=== PATIENT | male | born 1990 | race Caucasian/White ===

== ENCOUNTER 2017-09-07 00:35 | Emergency (ER) | payer OTHER ==
[~2017-09-07] VITALS: Ht 180.3 cm; Wt 88.5 kg
[2017-09-07 00:37] VITALS: BP 138/66; PULSE 112; RESP 16; TEMP 98.6; O2SAT 98
[2017-09-07 01:29] VITALS: RESP 22; O2SAT 98
--- NOTE | 2017-09-07 01:29 | PD ---
HPI Chief Complaint: Cold / Flu Symptoms Time Seen by Provider: 01:18 Travel History International Travel<30 days: No Contact w/Intl Traveler<30days: No Traveled to known affect area: No History of Present Illness HPI This is a 27 year male with history of tobaccoism, presents today with spacer cough and shortness of breath. Patient states he's been coughing for several days now. He reports subjective fevers, no chills.. He states he has tightness in his chest when he coughs. He denies chest tightness without coughing. Reports coughing up gonzales phlegm. He denies any drugs of abuse. He also reports sore throat. PFSH Past Medical History Asthma: Yes (CHILDHOOD) Diminished Hearing: No Social History Alcohol Use: Yes (OCC) Tobacco Use: Yes (1PPD) Substance Use: Yes (WEED) Allergies-Medications (Allergen,Severity, Reaction): Coded Allergies: tramadol (Verified Allergy, Mild, Hives, 09/07/17) Reported Meds & Prescriptions Reported Meds & Active Scripts Active Tessalon Perles (Benzonatate) 100 Mg Cap 200 Mg PO TID PRN 5 Days Doxycycline Hyclate 100 Mg Cap 100 Mg PO BID Review of Systems Except as stated in HPI: all other systems reviewed are Neg General / Constitutional: Positive: Fever (subjective), No: Chills HENT: Positive: Sore Throat, No: Headaches, Vertigo, Lightheadedness Cardiovascular: Positive: Chest Pain or Discomfort (pleuritic with coughing), No: Palpitations Respiratory: Positive: Cough (productive gonzales phlegm), Shortness of Breath, Wheezing Gastrointestinal: No: Nausea, Vomiting, Abdominal Pain Musculoskeletal: No: Myalgias, Weakness, Pain Neurologic: No: Weakness, Dizziness, Headache Physical Exam Narrative GENERAL: Well-nourished, well-developed patient, who is actively coughing when I entered the room.. SKIN: Focused skin assessment warm/dry. HEAD: Normocephalic/atraumatic. EYES: No scleral icterus. No injection or drainage. NECK: Supple, trachea midline. CARDIOVASCULAR: Regular rate and rhythm without murmurs, gallops, or rubs. RESPIRATORY: Breath sounds equal bilaterally. Expiratory wheezes in the upper and lower lung potter bilaterally. No Rales appreciated. GASTROINTESTINAL: Abdomen soft, non-tender, nondistended. MUSCULOSKELETAL: No cyanosis, or edema. NEUROLOGICAL: Awake and alert. Cranial nerves II through XII intact. Motor grossly within normal limits. Five out of 5 muscle strength in all muscle groups. Normal speech. Data Data Last Documented VS Vital Signs Date Time Temp Pulse Resp B/P (MAP) Pulse Ox O2 Delivery O2 Flow Rate FiO2 09/07/17 01:49 98 21 09/07/17 01:29 Nasal Cannula 2.00 09/07/17 01:29 22 09/07/17 00:37 98.6 112 Orders Orders Basic Metabolic Panel (Bmp) (09/07/17:18) Complete Blood Count With Diff (09/07/17:18) Chest, Single Ap (09/07/17:18) Ecg Monitoring (09/07/17:18) Iv Access Insert/Monitor (09/07/17:18) Oximetry (09/07/17:18) Oxygen Administration (09/07/17:18) Methylprednisolone So Succ Inj (Solumedr (09/07/17 01:30) Albuterol Neb (Albuterol Neb) (09/07/17 01:30) Albuterol-Ipratropium Neb (Duoneb Neb) (09/07/17 01:30) Sodium Chloride 0.9% Flush (Ns Flush) (09/07/17 01:30) Influenzae A/B Antigen (09/07/17 01:18) Group A Rapid Strep Screen (09/07/17:18) Strep Culture (Group A) (09/07/17 01:25) Labs Laboratory Tests Test 09/07/17 01:15 White Blood Count 15.7 TH/MM3 Red Blood Count 4.85 MIL/MM3 Hemoglobin 16.3 GM/DL Hematocrit 46.4 % Mean Corpuscular Volume 95.5 FL Mean Corpuscular Hemoglobin 33.7 PG Mean Corpuscular Hemoglobin Concent 35.2 % Red Cell Distribution Width 12.6 % Platelet Count 144 TH/MM3 Mean Platelet Volume 10.9 FL Neutrophils (%) (Auto) 71.2 % Lymphocytes (%) (Auto) 15.8 % Monocytes (%) (Auto) 11.1 % Eosinophils (%) (Auto) 1.7 % Basophils (%) (Auto) 0.2 % Neutrophils # (Auto) 11.2 TH/MM3 Lymphocytes # (Auto) 2.5 TH/MM3 Monocytes # (Auto) 1.7 TH/MM3 Eosinophils # (Auto) 0.3 TH/MM3 Basophils # (Auto) 0.0 TH/MM3 CBC Comment DIFF FINAL Differential Comment Blood Urea Nitrogen 11 MG/DL Creatinine 1.01 MG/DL Random Glucose 87 MG/DL Calcium Level 9.2 MG/DL Sodium Level 137 MEQ/L Potassium Level 3.7 MEQ/L Chloride Level 104 MEQ/L Carbon Dioxide Level 26.2 MEQ/L Anion Gap 7 MEQ/L Estimat Glomerular Filtration Rate 87 ML/MIN MDM Medical Decision Making Medical Screen Exam Complete: Yes Emergency Medical Condition: Yes Differential Diagnosis Bronchitis versus pneumonia versus influenza versus strep throat Narrative Course 27-year-old male presents with cough with pleuritic discomfort. The patient has a hacking cough with reported gonzales phlegm. Chest x-ray shows no evidence of acute infiltrate. The patient's white blood cell count was elevated at 14, 000. Given this, he'll be treated with doxycycline 100 mg by mouth twice a day. Also be given a prescription for Tessalon Perles. He is instructed to stop smoking cigarettes. He is instructed return of he starts feeling worse. Diagnosis Primary Impression: Bronchitis Additional Impression: Tobacco use Additional Instructions: Return if feeling worse. Stop smoking cigarettes. Scripts Benzonatate (Tessalon Perles) 100 Mg Cap 200 MG PO TID Y for COUGH for 5 Days, CAP 0 Refills Prov: Ralph Lopes MD 09/07/17 Doxycycline Hyclate (Doxycycline Hyclate) 100 Mg Cap 100 MG PO BID for Infection, #20 CAP 0 Refills Prov: Ralph Lopes MD 09/07/17 Disposition: 01 DISCHARGE HOME Condition: Stable Ralph oLpes MD Sep 07, 2017 01:29
[2017-09-07] MEDS ORDERED: methylPREDNISolone SOD SUCC 125 MG/2 ML VIAL IV PUSH ONE (01:30)
[2017-09-07] MEDS ORDERED: RESP: ALBUTEROL 2.5 MG/IPRATROPIUM 0.5 MG NEB (SCH) INH ONE (01:30)
[2017-09-07] MEDS ORDERED: SODIUM CHLORIDE 0.9% FLUSH 10 ML FLUSH IVF PRN (01:30)
[2017-09-07] MEDS: RESP: ALBUTEROL 2.5 MG/3 ML NEB (SCH) INH (01:45)
[2017-09-07 01:49] VITALS: O2SAT 98
[2017-09-07 01:49] LABS: AUTOMATED NEUTROPHIL # 11.2 TH/MM3 (1.8-7.7); BASOPHIL % 0.2 % (0.0-2.0); EOSINOPHIL # 0.3 TH/MM3 (0-0.4); EOSINOPHIL % 1.7 % (0.0-4.0); HEMATOCRIT 46.4 % (39.0-51.0); HEMO FLAGS DIFF FINAL; LYMPH % 15.8 % (9.0-44.0); LYMPHOCYTE # 2.5 TH/MM3 (1.0-4.8); MEAN CELL VOLUME 95.5 FL (80.0-100.0); MEAN CORPUSCULAR HEMOGLOBIN 33.7 PG (27.0-34.0); MEAN CORPUSCULAR HGB CONC 35.2 % (32.0-36.0); MONO % 11.1 % (0.0-8.0); NEUT % 71.2 % (16.0-70.0); PLATELET COUNT 144 TH/MM3 (150-450); RED BLOOD COUNT 4.85 MIL/MM3 (4.50-5.90); RED CELL DISTRIBUTION WIDTH 12.6 % (11.6-17.2); WHITE BLOOD COUNT 15.7 TH/MM3 (4.0-11.0)
[2017-09-07 02:11] LABS: BICARBONATE 26.2 MEQ/L (21.0-32.0); POTASSIUM 3.7 MEQ/L (3.5-5.1)
--- NOTE | 2017-09-07 02:27 | RADRPT ---
EXAM DATE/TIME: 09/07/2017 01:28 [facility] COMPARISON: No previous studies available for comparison. INDICATIONS : Cough, wheezing for 2 weeks MEDICAL HISTORY : None. SURGICAL HISTORY : None. ENCOUNTER: Initial ACUITY: 2 weeks PAIN SCORE: 0/10 LOCATION: Bilateral chest FINDINGS: A single view of the chest demonstrates the lungs to be symmetrically aerated without evidence of mas s, infiltrate or effusion. The cardiomediastinal contours are unremarkable. Osseous structures are intact. CONCLUSION: 1. No acute cardiopulmonary disease. Makr Castano MD on September 07, 2017 at 2:26 Board Certified Radiologist. This report was verified electronically.
[2017-09-07 03:00] VITALS: BP 128/78; PULSE 95; RESP 16; O2SAT 100
[2017-09-07] MEDS ORDERED: DOXY100C PO (03:03)
[2017-09-07] MEDS ORDERED: BENZ100 PO (03:03)
[2017-09-07] MEDS ORDERED: KETOROLAC TROMETHAMINE 60 MG/2 ML (IM) VIAL IM ONE (03:30)
--- NOTE | 2017-09-07 21:39 | EKG ---
Date Performed: 09/07/2017 Time Performed: 01:12:35 PTAGE: 27 years EKG: Sinus rhythm POSSIBLE LEFT ATRIAL ENLARGEMENT INCOMPLETE RIGHT BUNDLE BRANCH BLOCK BORDERLINE ECG NO PREVIOUS TRACING DOCTOR: Esa Johnson Interpretating Date/Time 09/07/2017 21:37:23
== END 2017-09-07 03:35 | disposition home or self-care (01) ==
LOC: NEPE 00:35
DX: J40 Bronchitis, not specified as acute or chronic (principal); F17.210 Nicotine dependence, cigarettes, uncomplicated
CPT/HCPCS: 71010; 80048; 85025; 87081; 87804; 87880; 93005; 94640; 94664; 96372; 96374; 99284; J1885; J2930; J7613

== ENCOUNTER 2017-09-10 22:11 | Inpatient (IN) | payer SELFPAY ==
[~2017-09-10] VITALS: Ht 180.3 cm; Wt 83.6 kg
[2017-09-10 22:11] VITALS: BP 139/80; PULSE 118; RESP 18; TEMP 100.3; O2SAT 96
[~2017-09-10 22:11] MED LIST: BENZ100 PO; DOXY100C PO
[2017-09-10] MEDS ORDERED: methylPREDNISolone SOD SUCC 125 MG/2 ML VIAL IV PUSH ONE (23:00)
[2017-09-10] MEDS ORDERED: SODIUM CHLOR 0.9% 1000 ML INJ 1,000 ML IV ONE (23:00)
[2017-09-10] MEDS ORDERED: KETOROLAC TROMETHAMINE 30 MG/ML (IVP) VIAL IV PUSH ONE (23:00)
[2017-09-10] MEDS ORDERED: SODIUM CHLORIDE 0.9% FLUSH 10 ML FLUSH IVF PRN (23:00)
--- NOTE | 2017-09-10 23:10 | PD ---
HPI Chief Complaint: ENT Complaint Time Seen by Provider: 22:43 Travel History International Travel<30 days: No Contact w/Intl Traveler<30days: No Traveled to known affect area: No History of Present Illness HPI Patient is a 27-year-old male presenting to the emergency department for evaluation of sore throat, sinus congestion, cough. Patient states he was seen here 3 days ago but was unable to fill his prescription because it was too expensive. Since that time his symptoms have worsened. He took 1 200 mg ibuprofen tablet earlier today. He states his nose is clogged and he needs us to drain it. Patient states pain in his throat is a 10 out of 10 and he states he cannot swallow. He denies any drooling or dysphagia. PFSH Past Medical History Asthma: Yes (CHILDHOOD) Diminished Hearing: No Social History Alcohol Use: Yes (OCC) Tobacco Use: Yes (1PPD) Substance Use: Yes (WEED) Allergies-Medications (Allergen,Severity, Reaction): Coded Allergies: tramadol (Verified Allergy, Mild, Hives, 09/10/17) Reported Meds & Prescriptions Reported Meds & Active Scripts Active Tessalon Perles (Benzonatate) 100 Mg Cap 200 Mg PO TID PRN 5 Days Doxycycline Hyclate 100 Mg Cap 100 Mg PO BID Review of Systems Except as stated in HPI: all other systems reviewed are Neg General / Constitutional: Positive: Fever HENT: Positive: Sore Throat, Congestion Respiratory: Positive: Cough Gastrointestinal: No: Nausea, Abdominal Pain Physical Exam Narrative GENERAL: Well-developed, well-nourished, acutely ill-appearing male. SKIN: Warm and dry. HEAD: Atraumatic. Normocephalic. EYES: Pupils equal and round. No scleral icterus. No injection or drainage. ENT: No nasal bleeding or discharge. Mucous membranes pink and moist. 2+ tonsillar hypertrophy on the left with exudate noted. NECK: Trachea midline. No JVD. No cervical lymphadenopathy noted. CARDIOVASCULAR: Regular rate and rhythm. RESPIRATORY: No accessory muscle use. Clear to auscultation. Coarse breath sounds in bases. GASTROINTESTINAL: Abdomen soft, non-tender, nondistended. Hepatic and splenic margins not palpable. MUSCULOSKELETAL: Extremities without clubbing, cyanosis, or edema. No obvious deformities. NEUROLOGICAL: Awake and alert. No obvious cranial nerve deficits. Motor grossly within normal limits. Five out of 5 muscle strength in the arms and legs. Normal speech. PSYCHIATRIC: Appropriate mood and affect; insight and judgment normal. Data Data Last Documented VS Vital Signs Date Time Temp Pulse Resp B/P (MAP) Pulse Ox O2 Delivery O2 Flow Rate FiO2 09/11/17 00:35 94 16 130/71 (90) 96 Room Air 09/10/17 22:11 100.3 Orders Orders Complete Blood Count With Diff (09/10/17 22:50) Comprehensive Metabolic Panel (09/10/17 22:50) Group A Rapid Strep Screen (09/10/17 22:50) Chest, Single Ap (09/10/17 22:50) Ecg Monitoring (09/10/17 22:50) Iv Access Insert/Monitor (09/10/17 22:50) Oximetry (09/10/17 22:50) Sodium Chloride 0.9% Flush (Ns Flush) (09/10/17 23:00) Methylprednisolone So Succ Inj (Solumedr (09/10/17 23:00) Sodium Chlor 0.9% 1000 Ml Inj (Ns 1000 M (09/10/17 23:00) Ketorolac Inj (Toradol Inj) (09/10/17 23:00) Ct Soft Tiss Neck W Iv Cont (09/10/17 ) Clindamycin Inj (Cleocin Inj) (09/10/17 23:30) Strep Culture (Group A) (09/10/17 23:00) Iohexol 350 Inj (Omnipaque 350 Inj) (09/11/17 00:24) Oxygen Administration (09/11/17 00:38) Morphine Inj (Morphine Inj) (09/11/17 00:45) Ondansetron Inj (Zofran Inj) (09/11/17 00:45) Sodium Chlor 0.9% 1000 Ml Inj (Ns 1000 M (09/11/17 00:45) Admit Order (Ed Use Only) (09/11/17 00:40) Labs Laboratory Tests Test 09/10/17 23:00 White Blood Count 14.2 TH/MM3 Red Blood Count 4.61 MIL/MM3 Hemoglobin 15.2 GM/DL Hematocrit 43.5 % Mean Corpuscular Volume 94.3 FL Mean Corpuscular Hemoglobin 32.8 PG Mean Corpuscular Hemoglobin Concent 34.8 % Red Cell Distribution Width 12.4 % Platelet Count 145 TH/MM3 Mean Platelet Volume 11.0 FL Neutrophils (%) (Auto) 73.2 % Lymphocytes (%) (Auto) 12.0 % Monocytes (%) (Auto) 13.9 % Eosinophils (%) (Auto) 0.7 % Basophils (%) (Auto) 0.2 % Neutrophils # (Auto) 10.4 TH/MM3 Lymphocytes # (Auto) 1.7 TH/MM3 Monocytes # (Auto) 2.0 TH/MM3 Eosinophils # (Auto) 0.1 TH/MM3 Basophils # (Auto) 0.0 TH/MM3 CBC Comment DIFF FINAL Differential Comment Blood Urea Nitrogen 9 MG/DL Creatinine 0.71 MG/DL Random Glucose 129 MG/DL Total Protein 7.7 GM/DL Albumin 3.5 GM/DL Calcium Level 8.9 MG/DL Alkaline Phosphatase 71 U/L Aspartate Amino Transf (AST/SGOT) 91 U/L Alanine Aminotransferase (ALT/SGPT) 153 U/L Total Bilirubin 0.5 MG/DL Sodium Level 132 MEQ/L Potassium Level 3.7 MEQ/L Chloride Level 98 MEQ/L Carbon Dioxide Level 25.7 MEQ/L Anion Gap 8 MEQ/L Estimat Glomerular Filtration Rate 131 ML/MIN [facility] Medical Decision Making Medical Screen Exam Complete: Yes Emergency Medical Condition: Yes Medical Record Reviewed: Yes Interpretation(s) Last Impressions Chest X-Ray 09/10/17 2250 Signed Impressions: Service Date/Time: Sunday, September 10, 2017 23:54 - CONCLUSION: 1. Perihilar interstitial densities which can be seen with bronchitis. 2. No pneumonia. Manan Dwyer MD Neck CT 09/10/17 0000 Signed Impressions: Service Date/Time: Monday, September 11, 2017 00:14 - CONCLUSION: 1. Narrowing of the nasopharynx and airway with prominent soft tissues and enlarged tonsils greater on the left. No definite abscess. 2. Ground glass density right upper lobe measuring 1.7 x 1.[address] chest recommended in 3-6 months. Manan Dwyer MD Laboratory Tests Test 09/10/17 23:00 White Blood Count 14.2 TH/MM3 Red Blood Count 4.61 MIL/MM3 Hemoglobin 15.2 GM/DL Hematocrit 43.5 % Mean Corpuscular Volume 94.3 FL Mean Corpuscular Hemoglobin 32.8 PG Mean Corpuscular Hemoglobin Concent 34.8 % Red Cell Distribution Width 12.4 % Platelet Count 145 TH/MM3 Mean Platelet Volume 11.0 FL Neutrophils (%) (Auto) 73.2 % Lymphocytes (%) (Auto) 12.0 % Monocytes (%) (Auto) 13.9 % Eosinophils (%) (Auto) 0.7 % Basophils (%) (Auto) 0.2 % Neutrophils # (Auto) 10.4 TH/MM3 Lymphocytes # (Auto) 1.7 TH/MM3 Monocytes # (Auto) 2.0 TH/MM3 Eosinophils # (Auto) 0.1 TH/MM3 Basophils # (Auto) 0.0 TH/MM3 CBC Comment DIFF FINAL Differential Comment Blood Urea Nitrogen 9 MG/DL Creatinine 0.71 MG/DL Random Glucose 129 MG/DL Total Protein 7.7 GM/DL Albumin 3.5 GM/DL Calcium Level 8.9 MG/DL Alkaline Phosphatase 71 U/L Aspartate Amino Transf (AST/SGOT) 91 U/L Alanine Aminotransferase (ALT/SGPT) 153 U/L Total Bilirubin 0.5 MG/DL Sodium Level 132 MEQ/L Potassium Level 3.7 MEQ/L Chloride Level 98 MEQ/L Carbon Dioxide Level 25.7 MEQ/L Anion Gap 8 MEQ/L Estimat Glomerular Filtration Rate 131 ML/MIN Vital Signs Date Time Temp Pulse Resp B/P (MAP) Pulse Ox O2 Delivery O2 Flow Rate FiO2 09/10/17 22:11 100.3 118 18 139/80 (99) 96 Room Air Differential Diagnosis Strep pharyngitis versus abscess versus pneumonia versus viral syndrome Narrative Course Patient presented with 2 days of worsening sore throat, fevers. He was seen and evaluated in the emergency department on September 07, 2017. He was given prescriptions but was unable to fill them due to cost. Patient has a mildly tachycardic and febrile on arrival. Labs and imaging ordered and pending. Patient was given Toradol, Solu-Medrol and IV fluids. Additionally clindamycin was ordered empirically. Medical records reviewed from previous presentation CC white blood cell count of 14.2 with slight left shift, monocytes 13.9 Chemistry sodium of 132, AST and ALT slightly elevated. No previous labs to compare to. Strep screen is negative. Chest x-ray which is read by the radiologist shows perihilar interstitial densities skin be seen with bronchitis, nose no pneumonia. CT scan of the soft tissues of the neck which is also read by radiologist shows nares of the nasopharynx and airway with prominent soft tissue and enlarged tonsils greater on the left. No definite abscess. Groundglass density of the right upper lobe measuring 1.7 x 1.5 cm. Follow-up CT the chest is recommended in 3-6 months. Findings were discussed with my attending physician. Dr. Medina also assessed patient. This caused findings with Dr. Mendez, lead scientist. Admit orders placed for IMC. Patient was moved echo pod due to acuity and for closer observation. Sepsis Criteria SIRS Criteria (2 or more): Temp > 100.9 or < 96.8, Heart rate over 90, WBC > 32733, < 4000 or > 10% bands Sepsis Criteria (SIRS+source): Infect source susp/known Diagnosis Primary Impression: Tonsillitis Additional Impression: Airway compromise Admitting Information Admitting Physician Requests: Admit Condition: Stable Erin Galvan EXTRUDER TENDER Sep 10, 2017 23:10
--- NOTE | 2017-09-10 23:18 | RADRPT ---
EXAM DATE/TIME: 09/10/2017 23:54 [facility] COMPARISON: CHEST SINGLE AP, September 07, 2017, 1:28. INDICATIONS : Pt recently diagnosed with bronchitis and says that he now has pain and swelling to face. MEDICAL HISTORY : Asthma SURGICAL HISTORY : None. ENCOUNTER: Initial ACUITY: 3 days PAIN SCORE: 7/10 LOCATION: Bilateral chest FINDINGS: A single view of the chest demonstrates perihilar interstitial densities. No consolidation or pleural effusion. Heart normal in size The cardiomediastinal contours are unremarkable. Osseous structures are intact. CONCLUSION: 1. Perihilar interstitial densities which can be seen with bronchitis. 2. No pneumonia. Manan Dwyer MD on September 10, 2017 at 23:16 Board Certified Radiologist. This report was verified electronically.
[2017-09-10] MEDS ORDERED: CLINDAMYCIN INJ 600 MG in SODIUM CHLORIDE 0.9% INJ 100 ML IV ONE (23:30)
[2017-09-10 23:38] LABS: AUTOMATED NEUTROPHIL # 10.4 TH/MM3 (1.8-7.7); BASOPHIL % 0.2 % (0.0-2.0); EOSINOPHIL # 0.1 TH/MM3 (0-0.4); EOSINOPHIL % 0.7 % (0.0-4.0); HEMATOCRIT 43.5 % (39.0-51.0); HEMO FLAGS DIFF FINAL; LYMPHOCYTE # 1.7 TH/MM3 (1.0-4.8); MEAN CELL VOLUME 94.3 FL (80.0-100.0); MEAN CORPUSCULAR HEMOGLOBIN 32.8 PG (27.0-34.0); MEAN CORPUSCULAR HGB CONC 34.8 % (32.0-36.0); MONO % 13.9 % (0.0-8.0); NEUT % 73.2 % (16.0-70.0); PLATELET COUNT 145 TH/MM3 (150-450); RED BLOOD COUNT 4.61 MIL/MM3 (4.50-5.90); RED CELL DISTRIBUTION WIDTH 12.4 % (11.6-17.2); WHITE BLOOD COUNT 14.2 TH/MM3 (4.0-11.0)
[2017-09-10 23:54] LABS: ANION GAP 8 MEQ/L (5-15); AST (GOT) 91 U/L (15-37); BICARBONATE 25.7 MEQ/L (21.0-32.0); BLOOD UREA NITROGEN 9 MG/DL (7-18); CHLORIDE 98 MEQ/L (98-107); GLOMERULAR FILTRATION RATE 131 ML/MIN (>89); POTASSIUM 3.7 MEQ/L (3.5-5.1); SODIUM (NA) 132 MEQ/L (136-145)
[2017-09-10 23:56] LABS: ALT (GPT) 153 U/L (12-78)
[2017-09-10 23:58] LABS: ALKALINE PHOSPHATASE 71 U/L (45-117); TOTAL BILIRUBIN ADULT 0.5 MG/DL (0.2-1.0)
[2017-09-11] VITALS (13 sets, daily range): BP systolic 105–161; BP diastolic 58–73; PULSE 65–94; RESP 12–24; TEMP 97.9–99.4; O2SAT 95–100
[2017-09-11] MEDS ORDERED: IOHEXOL 350 MG/ML 10 ML VIAL (for RAD DIAG) IVCONTRAST ONE (00:24)
--- NOTE | 2017-09-11 00:38 | RADRPT ---
EXAM DATE/TIME: 09/11/2017 00:14 [facility] COMPARISON: No previous studies available for comparison. INDICATIONS : Sore throat. IV CONTRAST: 45 cc Omnipaque 350 (iohexol) IV RADIATION DOSE: 14.16 CTDIvol (mGy) MEDICAL HISTORY : None SURGICAL HISTORY : None. ENCOUNTER: Initial ACUITY: 1 day PAIN SCALE: 6/10 LOCATION: Bilateral neck TECHNIQUE: Volumetric scanning of the neck was performed. Using automated exposure control and adjustment of th e mA and/or kV according to patient size, radiation dose was kept as low as reasonably achievable to obtain optimal diagnostic quality images. DICOM format image data is available electronically for r eview and comparison. FINDINGS: NASOPHARYNX: Soft tissue prominence in the nasopharynx. There is nasopharyngeal narrowing. OROPHARYNX: Enlargement of the tonsils greater on the left with prominent adjacent soft tissues. No definite absc ess. There is narrowing of the airway. LARYNX: The supraglottic, glottic, and infraglottic structures are intact. PARAPHARYNGEAL: The parapharyngeal space is intact. SALIVARY GLANDS: The parotid and submandibular glands are intact. LYMPH NODES: No enlarged or necrotic-appearing nodes. THYROID: Homogeneous enhancement without evidence of nodule. BONES: Unremarkable. There is groundglass density in the right upper lobe measuring 1.7 x 1.5 cm. CONCLUSION: 1. Narrowing of the nasopharynx and airway with prominent soft tissues and enlarged tonsils greater o n the left. No definite abscess. 2. Ground glass density right upper lobe measuring 1.7 x [address] chest recommended in 3-6 months. Manan Dwyer MD on September 11, 2017 at 0:29 Board Certified Radiologist. This report was verified electronically.
[2017-09-11] MEDS ORDERED: SODIUM CHLOR 0.9% 1000 ML INJ 1,000 ML IV ONE (00:45)
[2017-09-11] MEDS ORDERED: ONDANSETRON HCL 4 MG/2 ML VIAL IV PUSH ONE (00:45)
[2017-09-11] MEDS ORDERED: MORPHINE SULFATE 4 MG/ML INJ IV PUSH ONE (00:45)
--- NOTE | 2017-09-11 01:47 | HHI.HP ---
HPI Service Critical Care Medicine Primary Care Physician No Primary Care Physician Admission Diagnosis tonsillitis Diagnosis: Travel History International Travel<30 Days: No Contact w/Intl Traveler <30 Da: No Traveled to Known Affected Are: No History of Present Illness 27-year-old male presenting for evaluation of sore throat, sinus congestion, cough. Patient states he was seen here 3 days ago but was unable to fill his prescription because it was too expensive. Since that time his symptoms have worsened. He took 1 200 mg ibuprofen tablet earlier today. He states his nose is clogged and he needs us to drain it. Patient states pain in his throat is a 10 out of 10 and he states he cannot swallow. He denies any drooling or dysphagia. Review of Systems Constitutional: COMPLAINS OF: Fatigue, Fever, Dizziness, Night Sweats, DENIES: Diaphoretic episodes, Weight gain, Weight loss, Chills, Change in appetite Endocrine: DENIES: Heat/cold intolerance, Polydipsia, Polyuria, Polyphagia Eyes: DENIES: Blurred vision, Diplopia, Eye inflammation, Eye pain, Vision loss , Photosensitivity, Double Vision Ears, nose, mouth, throat: DENIES: Tinnitus, Hearing loss, Vertigo, Nasal discharge, Oral lesions, Throat pain, Hoarseness, Ear Pain, Running Nose, Epistaxis, Sinus Pain, Toothache, Odynophagia Respiratory: COMPLAINS OF: Shortness of breath, DENIES: Apneas, Cough, Snoring , Wheezing, Hemoptysis, Sputum production Cardiovascular: DENIES: Chest pain, Palpitations, Syncope, Dyspnea on Exertion , PND, Lower Extremity Edema, Orthopnea, Claudication Gastrointestinal: DENIES: Abdominal pain, Black stools, Bloody stools, Constipation, Diarrhea, Nausea, Vomiting, Difficulty Swallowing, Anorexia Genitourinary: DENIES: Sexual dysfunction, Urinary frequency, Urinary incontinence, Urgency, Hematuria, Dysuria, Nocturia, Penile Discharge, Testicular Pain, Testicular Swelling Musculoskeletal: DENIES: Joint pain, Muscle aches, Stiffness, Joint Swelling, Back pain, Neck pain Integumentary: DENIES: Abnormal pigmentation, Nail changes, Pruritus, Rash Hematologic/lymphatic: DENIES: Bruising, Lymphadenopathy Immunologic/allergic: DENIES: Eczema, Urticaria Neurologic: DENIES: Abnormal gait, Headache, Localized weakness, Paresthesias, Seizures, Speech Problems, Tremor, Poor Balance Psychiatric: DENIES: Anxiety, Confusion, Mood changes, Depression, Hallucinations, Agitation, Suicidal Ideation, Homicidal Ideation, Delusions Past Family Social History Allergies: Coded Allergies: tramadol (Verified Allergy, Mild, Hives, 09/10/17) Past Medical History Asthma as a child Past Surgical History None Reported Medications Reported Meds & Active Scripts Active Tessalon Perles (Benzonatate) 100 Mg Cap 200 Mg PO TID PRN 5 Days Doxycycline Hyclate 100 Mg Cap 100 Mg PO BID Active Ordered Medications Current Medications Medications (Trade) Dose Ordered Sig/Erna Route PRN Reason Start Time Stop Time Status Last Admin Dose Admin Sodium Chloride (NS Flush) 2 ml UNSCH PRN IVF FLUSH AFTER USING IV ACCESS 09/10/17 23:00 Sodium Chloride 1,000 ml @ 84 mls/hr [id number] IV 09/11/17 02:28 09/11/17 02:54 Sodium Chloride (NS Flush) 2 ml UNSCH PRN IV FLUSH FLUSH AFTER USING IV ACCESS 09/11/17 02:30 Sodium Chloride (NS Flush) 2 ml BID IV FLUSH 09/11/17 09:00 Acetaminophen (Tylenol) 650 mg Q6H PRN PO PAIN 1-5 AND/OR FEVER >101F 09/11/17 02:30 Morphine Sulfate (Morphine Inj) 2 mg Q2H PRN IV PAIN 6-10 09/11/17 02:45 09/11/17 02:54 Famotidine (Pepcid) 20 mg Q12HR PO 09/11/17 09:00 Ondansetron HCl (Zofran Inj) 4 mg Q6H PRN IV PUSH NAUSEA OR VOMITING 09/11/17 02:30 Albuterol/ Ipratropium (Duoneb Neb) 1 ampule Q2HR NEB PRN INH WHEEZING 09/11/17 02:30 Heparin Sodium (Porcine) (Heparin Inj) 5,000 units Q8H SQ 09/11/17 06:00 Miscellaneous Information 1 [id number] XX 09/11/17 02:30 Chlorhexidine Gluconate (Chlorhexidine 2% Cloth) 3 pack Taper DAILY@04 TOP 09/11/17 04:00 09/07/18 03:59 Chlorhexidine Gluconate (Chlorhexidine 2% Cloth) 3 pack UNSCH PRN [facility] 09/11/17 02:30 Senna/Docusate Sodium (Jocy-Colace) 1 tab BID PO 09/11/17 09:00 Magnesium Hydroxide (Milk Of Magnesia Liq) 30 ml Q12H PRN PO Mild constipation 09/11/17 02:30 Sennosides (Senokot) 17.2 mg Q12H PRN PO Moderate constipation 09/11/17 02:30 Bisacodyl (Dulcolax Supp) 10 mg DAILY PRN RECTAL SEVERE CONSITIPATION 09/11/17 02:30 Lactulose (Lactulose Liq) 30 ml DAILY PRN PO SEVERE CONSITIPATION 09/11/17 02:30 Clindamycin Phosphate 600 mg/ Sodium Chloride 104 ml @ 208 mls/hr Q6H IV 09/11/17 06:00 Family History No family history of early coronary artery disease Social History Smokes pack per day Denies alcohol or illicit drug abuse Physical Exam Vital Signs Vital Signs Date Time Temp Pulse Resp B/P (MAP) Pulse Ox O2 Delivery O2 Flow Rate FiO2 09/11/17 01:25 85 16 118/64 (82) 95 Room Air 09/11/17 00:35 94 16 130/71 (90) 96 Room Air 09/10/17 23:58 20 09/10/17 22:11 100.3 118 18 139/80 (99) 96 Room Air Physical Exam GENERAL: Well-nourished, well-developed patient. SKIN: Warm and dry. HEAD: Normocephalic. EYES: No scleral icterus. No injection or drainage. NECK: Supple, trachea midline. No JVD or lymphadenopathy. CARDIOVASCULAR: Regular rate and rhythm without murmurs, gallops, or rubs. RESPIRATORY: Breath sounds equal bilaterally. No accessory muscle use. GASTROINTESTINAL: Abdomen soft, non-tender, nondistended. MUSCULOSKELETAL: No cyanosis, or edema. BACK: Nontender without obvious deformity. NEURO EXAM: GCS: M 6 V 5 E 4 Mental Status: The patient is alert and oriented to person, place, and time with normal speech. Cranial Nerves: Visual acuity intact bilaterally. Visual potter normal in all quadrants. Pupils are round, reactive to light. Extraocular movements are intact without ptosis. Hearing is normal bilaterally. Voice is normal. Tongue protrudes midline and moves symmetrically. Reflexes: Biceps, patellar, and Achilles are 2/4 bilaterally. No clonus. Sensation: Sensation is intact bilaterally to pain and light touch. Two-point discrimination is intact. Motor: Good muscle tone. Strength is 5/5 bilaterally. Cerebellar: Celgfy-pe-lkef and wswr-yt-[id number] test normal bilaterally. Laboratory Laboratory Tests Test 09/10/17 23:00 White Blood Count 14.2 Red Blood Count 4.61 Hemoglobin 15.2 Hematocrit 43.5 Mean Corpuscular Volume 94.3 Mean Corpuscular Hemoglobin 32.8 Mean Corpuscular Hemoglobin Concent 34.8 Red Cell Distribution Width 12.4 Platelet Count 145 Mean Platelet Volume 11.0 Neutrophils (%) (Auto) 73.2 Lymphocytes (%) (Auto) 12.0 Monocytes (%) (Auto) 13.9 Eosinophils (%) (Auto) 0.7 Basophils (%) (Auto) 0.2 Neutrophils # (Auto) 10.4 Lymphocytes # (Auto) 1.7 Monocytes # (Auto) 2.0 Eosinophils # (Auto) 0.1 Basophils # (Auto) 0.0 CBC Comment DIFF FINAL Differential Comment Blood Urea Nitrogen 9 Creatinine 0.71 Random Glucose 129 Total Protein 7.7 Albumin 3.5 Calcium Level 8.9 Alkaline Phosphatase 71 Aspartate Amino Transf (AST/SGOT) 91 Alanine Aminotransferase (ALT/SGPT) 153 Total Bilirubin 0.5 Sodium Level 132 Potassium Level 3.7 Chloride Level 98 Carbon Dioxide Level 25.7 Anion Gap 8 Estimat Glomerular Filtration Rate 131 Date/Time Source Procedure Growth Status 09/10/17 23:00 Throat Group A Streptococcus Screen Pending Received Result Diagram: 09/10/17 23009/10/17 230 Imaging Last 24 hours Impressions Chest X-Ray 09/10/172249 Signed Impressions: Service Date/Time: Sunday, September 10, 2017 23:54 - CONCLUSION: 1. Perihilar interstitial densities which can be seen with bronchitis. 2. No pneumonia. Manan Dwyer MD Capjimmiei VTE Risk Assessment Caprini VTE Risk Assessment: Mod/High Risk (score >= 2) Caprini Risk Assessment Model Point Value = 1 Point Value = 2 Point Value = 3 Point Value = 5 Age 41-60 Minor surgery BMI > 25 kg/m2 Swollen legs Varicose veins or History of unexplained or recurrent spontaneous Oral contraceptives or hormone replacement Sepsis (< 1 month) Serious lung disease, including pneumonia (< 1 month) Abnormal pulmonary function Acute myocardial infarction Congestive heart failure (< 1 month) History of inflammatory bowel disease Medical patient at bed rest Age 61-74 Arthroscopic surgery Major open surgery (> 45 min) Laparoscopic surgery (> 45 min) Malignancy Confined to bed (> 72 hours) Immobilizing plaster cast Central venous access Age >= 75 History of VTE Family history of VTE Factor V Leiden Prothrombin [id number] Lupus anticoagulant Anticardiolipin antibodies Elevated serum homocysteine Heparin-induced thrombocytopenia Other congenital or acquired thrombophilia Stroke (< 1 month) Elective arthroplasty Hip, pelvis, or leg fracture Acute spinal cord injury (< 1 month) Prophylaxis Regimen Total Risk Factor Score Risk Level Prophylaxis Regimen 0-1 Low Early ambulation 2 Moderate Order ONE of the following: *Sequential Compression Device (SCD) *Heparin 5000 units SQ BID 3-4 Higher Order ONE of the following medications: *Heparin 5000 units SQ TID *Enoxaparin/Lovenox 40 mg SQ daily (WT < 150 kg, CrCl > 30 mL/min) *Enoxaparin/Lovenox 30 mg SQ daily (WT < 150 kg, CrCl > 10-29 mL/min) *Enoxaparin/Lovenox 30 mg SQ BID (WT < 150 kg, CrCl > 30 mL/min) AND/OR *Sequential Compression Device (SCD) 5 or more Highest Order ONE of the following medications: *Heparin 5000 units SQ TID (Preferred with Epidurals) *Enoxaparin/Lovenox 40 mg SQ daily (WT < 150 kg, CrCl > 30 mL/min) *Enoxaparin/Lovenox 30 mg SQ daily (WT < 150 kg, CrCl > 10-29 mL/min) *Enoxaparin/Lovenox 30 mg SQ BID (WT < 150 kg, CrCl > 30 mL/min) AND *Sequential Compression Device (SCD) Assessment and Plan Assessment and Plan Pharyngitis - No evidence of retro-tonsillar abscess per CAT scan - Clindamycin - Blood cultures sputum culture - De-escalate antibiotics per sensitivity - ENT consult for airway edema - Tylenol when necessary - Monitor in the ICU for airway DVT GI prophylaxis - Teds SCDs - Subcutaneous heparin - Pepcid Critical Care: The total critical care time was 35 minutes. Time to perform other separately billable procedures was not included in the critical care time. Juan Mendez MD Sep 11, 2017 1:47 am
[2017-09-11] MEDS ORDERED: SODIUM CHLORIDE 0.9% FLUSH 10 ML FLUSH IV FLUSH PRN (02:30)
[2017-09-11] MEDS ORDERED: ONDANSETRON HCL 4 MG/2 ML VIAL IV PUSH PRN (02:30)
[2017-09-11] MEDS ORDERED: RESP: ALBUTEROL 2.5 MG/IPRATROPIUM 0.5 MG NEB (PRN) INH (02:30)
[2017-09-11] MEDS ORDERED: SENNOSIDES 8.6 MG TAB PO PRN (02:30)
[2017-09-11] MEDS ORDERED: MAGNESIUM HYDROXIDE SUSP 30 ML CUP PO PRN (02:30)
[2017-09-11] MEDS ORDERED: BISACODYL 10 MG SUPP RECTAL PRN (02:30)
[2017-09-11] MEDS ORDERED: ACETAMINOPHEN 325 MG TAB PO PRN (02:30)
[2017-09-11] MEDS ORDERED: CHLORHEXIDINE GLUCONATE 2 % 1 PACK (2 CLOTHS) TOP PRN (02:30)
[2017-09-11] MEDS ORDERED: MISCELLANEOUS NURSING INFORMATION XX SCH (02:30)
[2017-09-11] MEDS ORDERED: LACTULOSE SYRUP 20 GM/30 ML CUP PO PRN (02:30)
[2017-09-11] MEDS: MORPHINE SULFATE 2 MG/ML INJ IV PRN ×8 (02:54→22:38)
[2017-09-11] MEDS: SODIUM CHLOR 0.9% 1000 ML INJ 1,000 ML IV SCH ×2 (02:54→14:40)
[2017-09-11] MEDS: CHLORHEXIDINE GLUCONATE 2 % 1 PACK (2 CLOTHS) TOP SCH (04:00)
[2017-09-11] MEDS: HEPARIN SODIUM - SQ 10,000 UNITS/ML VIAL SQ SCH ×3 (04:58→22:38)
[2017-09-11] MEDS: CLINDAMYCIN INJ 600 MG in SODIUM CHLORIDE 0.9% INJ 100 ML IV SCH ×4 (06:02→23:56)
--- NOTE | 2017-09-11 08:02 | HHI.CCPN ---
Subjective Remarks/Hospital Course 27-year-old male presenting for evaluation of sore throat, sinus congestion, cough. Patient states he was seen here 3 days ago but was unable to fill his prescription because it was too expensive. Since that time his symptoms have worsened. He took 1 200 mg ibuprofen tablet earlier today. He states his nose is clogged and he needs us to drain it. Patient states pain in his throat is a 10 out of 10 and he states he cannot swallow. He denies any drooling or dysphagia. 09/11 0800 hrs: Obstructive sounds over airway in neck. Clearly tugging to inhale but comfortable still. Start decadron q6h. Objective Vital Signs Date Time Temp Pulse Resp B/P (MAP) Pulse Ox O2 Delivery O2 Flow Rate FiO2 09/11/17 06:00 76 09/11/17 04:00 98.3 17 123/67 (85) 97 09/11/17 03:08 Room Air Intake and Output 09/11/17 09/11/17 09/12/17 08:00 16:00 00:00 Intake Total 2034 ml Output Total 625 ml Balance 1409 ml Result Diagram: 09/10/17 2300 09/10/17 2300 Other Results Microbiology Date/Time Source Procedure Growth Status 09/10/17 23:00 Throat Group A Streptococcus Screen (CHONG) - Final Complete Imaging Last 24 hours Impressions Chest X-Ray 09/10/172249 Signed Impressions: Service Date/Time: Sunday, September 10, 2017 23:54 - CONCLUSION: 1. Perihilar interstitial densities which can be seen with bronchitis. 2. No pneumonia. Manan Dwyer MD Objective Remarks GENERAL: Well-nourished, well-developed patient. SKIN: Warm and dry. HEAD: Normocephalic. EYES: No scleral icterus. No injection or drainage. NECK: Supple, trachea midline. Inspiratory obstructive sounds, tugging. CARDIOVASCULAR: Regular rate and rhythm without murmurs, gallops, or rubs. RESPIRATORY: Breath sounds equal bilaterally. No accessory muscle use. GASTROINTESTINAL: Abdomen soft, non-tender, nondistended. MUSCULOSKELETAL: No cyanosis, or edema. BACK: Nontender without obvious deformity. NEURO EXAM: GCS: O X 3, alert, cooperative. M/S grossly intact. A/P Assessment and Plan Pharyngitis - No evidence of retro-tonsillar abscess per CAT scan - Clindamycin - Blood cultures sputum culture - De-escalate antibiotics per sensitivity - ENT consult for airway edema - Tylenol when necessary - Monitor in the ICU for airway - Decadron 6 mg q6h. DVT GI prophylaxis - Teds SCDs - Subcutaneous heparin - Pepcid Overall impression: Critically ill with upper airway obstruction due to hypopharyngeal edema. May require intubation. Critical care 44 mins Ralph Shi MD Sep 11, 2017 08:02
[2017-09-11] MEDS: DOCUSATE SODIUM 50 MG/SENNA 8.6 MG TAB PO SCH ×2 (08:56→19:51)
[2017-09-11] MEDS: DEXAMETHASONE SOD PHOS 20 MG/5 ML VIAL IV PUSH SCH ×3 (08:56→19:51)
[2017-09-11] MEDS: MENTHOL LOZENGE BUCCAL PRN ×4 (08:56→19:51)
[2017-09-11] MEDS: SODIUM CHLORIDE 0.9% FLUSH 10 ML FLUSH IV FLUSH SCH ×2 (08:56→19:51)
[2017-09-11] MEDS: PHENOL 1.4% SOLN 180 ML BTL OROPHARYNG PRN ×5 (08:56→19:52)
[2017-09-11] MEDS: FAMOTIDINE 20 MG TAB PO SCH ×2 (08:56→19:51)
[2017-09-12] VITALS (11 sets, daily range): BP systolic 109–118; BP diastolic 57–74; PULSE 55–74; RESP 15–21; TEMP 97.7–98.3; O2SAT 96–98
[2017-09-12] MEDS: DEXAMETHASONE SOD PHOS 20 MG/5 ML VIAL IV PUSH SCH ×4 (02:32→20:36)
[2017-09-12] MEDS: MORPHINE SULFATE 2 MG/ML INJ IV PRN ×7 (02:32→20:37)
[2017-09-12] MEDS: SODIUM CHLOR 0.9% 1000 ML INJ 1,000 ML IV SCH ×2 (02:39→17:44)
[2017-09-12] MEDS: CHLORHEXIDINE GLUCONATE 2 % 1 PACK (2 CLOTHS) TOP SCH (02:42)
[2017-09-12] MEDS: HEPARIN SODIUM - SQ 10,000 UNITS/ML VIAL SQ SCH ×3 (05:32→21:13)
[2017-09-12] MEDS: CLINDAMYCIN INJ 600 MG in SODIUM CHLORIDE 0.9% INJ 100 ML IV SCH ×3 (05:32→17:13)
[2017-09-12] MEDS: MENTHOL LOZENGE BUCCAL PRN ×2 (05:33→08:14)
[2017-09-12] MEDS: PHENOL 1.4% SOLN 180 ML BTL OROPHARYNG PRN ×4 (05:33→13:13)
[2017-09-12 07:21] LABS: AUTOMATED NEUTROPHIL # 8.5 TH/MM3 (1.8-7.7); BASOPHIL % 0.1 % (0.0-2.0); HEMATOCRIT 38.3 % (39.0-51.0); HEMO FLAGS DIFF FINAL; LYMPHOCYTE # 1.5 TH/MM3 (1.0-4.8); MEAN CELL VOLUME 95.2 FL (80.0-100.0); MEAN CORPUSCULAR HEMOGLOBIN 33.4 PG (27.0-34.0); MEAN CORPUSCULAR HGB CONC 35.1 % (32.0-36.0); MONO % 5.8 % (0.0-8.0); NEUT % 80.1 % (16.0-70.0); PLATELET COUNT 159 TH/MM3 (150-450); RED BLOOD COUNT 4.03 MIL/MM3 (4.50-5.90); RED CELL DISTRIBUTION WIDTH 12.4 % (11.6-17.2); WHITE BLOOD COUNT 10.7 TH/MM3 (4.0-11.0)
[2017-09-12 07:48] LABS: ALKALINE PHOSPHATASE 59 U/L (45-117); ALT (GPT) 100 U/L (12-78); ANION GAP 6 MEQ/L (5-15); AST (GOT) 25 U/L (15-37); BICARBONATE 25.1 MEQ/L (21.0-32.0); BLOOD UREA NITROGEN 9 MG/DL (7-18); CHLORIDE 108 MEQ/L (98-107); GLOMERULAR FILTRATION RATE 176 ML/MIN (>89); MAGNESIUM 2.3 MG/DL (1.5-2.5); SODIUM (NA) 139 MEQ/L (136-145); TOTAL BILIRUBIN ADULT 0.3 MG/DL (0.2-1.0)
[2017-09-12] MEDS: FAMOTIDINE 20 MG TAB PO SCH ×2 (08:13→20:37)
[2017-09-12] MEDS: DOCUSATE SODIUM 50 MG/SENNA 8.6 MG TAB PO SCH ×2 (08:14→21:00)
[2017-09-12] MEDS: SODIUM CHLORIDE 0.9% FLUSH 10 ML FLUSH IV FLUSH SCH ×2 (08:14→20:36)
--- NOTE | 2017-09-12 08:53 | HHI.CCPN ---
Subjective Remarks/Hospital Course 27-year-old male presenting for evaluation of sore throat, sinus congestion, cough. Patient states he was seen here 3 days ago but was unable to fill his prescription because it was too expensive. Since that time his symptoms have worsened. He took 1 200 mg ibuprofen tablet earlier today. He states his nose is clogged and he needs us to drain it. Patient states pain in his throat is a 10 out of 10 and he states he cannot swallow. He denies any drooling or dysphagia. 09/11 0800 hrs: Obstructive sounds over airway in neck. Clearly tugging to inhale but comfortable still. Start decadron q6h. 09/12: Less obstruction, no drooling. Nasal swab negative for MRSA. Will continue with clindamycin and decadron. Objective Vital Signs Date Time Temp Pulse Resp B/P (MAP) Pulse Ox O2 Delivery O2 Flow Rate FiO2 09/12/17 08:19 24 09/12/17 06:00 64 09/12/17 04:00 98.3 117/62 (80) 98 09/11/17 19:00 Room Air 97 Intake and Output 09/12/17 09/12/17 09/13/17 08:00 16:00 00:00 Intake Total 1587 ml Balance 1587 ml Result Diagram: 09/12/17 0615 09/12/17 0615 Other Results Microbiology Date/Time Source Procedure Growth Status 09/10/17 23:00 Throat Group A Streptococcus Screen (CHONG) - Final Complete Imaging Last 24 hours Impressions Chest X-Ray 09/10/17 2250 Signed Impressions: Service Date/Time: Sunday, September 10, 2017 23:54 - CONCLUSION: 1. Perihilar interstitial densities which can be seen with bronchitis. 2. No pneumonia. Manan Dwyer MD Objective Remarks GENERAL: Well-nourished, well-developed patient. SKIN: Warm and dry. HEAD: Normocephalic. ENT: Enlarged, erythematous tonsils. EYES: No scleral icterus. No injection or drainage. NECK: Supple, trachea midline. Inspiratory obstructive sounds, tugging. CARDIOVASCULAR: Regular rate and rhythm without murmurs, gallops, or rubs. RESPIRATORY: Breath sounds equal bilaterally. Mild inspiratory tugging but normal air exchange. GASTROINTESTINAL: Abdomen soft, non-tender, nondistended. BS active. MUSCULOSKELETAL: No cyanosis, or edema. NEURO EXAM: O X 3, alert, cooperative. M/S grossly intact. A/P Assessment and Plan Pharyngitis - No evidence of retro-tonsillar abscess per CAT scan - Clindamycin - Blood cultures sputum culture - De-escalate antibiotics per sensitivity - ENT consult for airway edema - Tylenol when necessary - Monitor in the ICU for airway - Decadron 6 mg q6h. DVT GI prophylaxis - Teds SCDs - Subcutaneous heparin - Pepcid Overall impression: No organism yet. Afebrile, normal WBC with mild shift. Continue present regimen. Ralph Shi MD Sep 12, 2017 08:53
[2017-09-12] MEDS ORDERED: ACETAMINOPHEN 650 MG/20.3 ML UDC PO PRN (09:00)
[2017-09-12] MEDS ORDERED: HYDROmorphone HCL PF 1 MG/ML VIAL IV PUSH PRN (09:00)
[2017-09-12] MEDS ORDERED: IBUPROFEN SUSP 100 MG/5 ML UDC PO PRN (09:30)
[2017-09-13] VITALS: BP 126/67; PULSE 55; RESP 16; TEMP 96.7; O2SAT 98
[2017-09-13] MEDS: MORPHINE SULFATE 2 MG/ML INJ IV PRN ×3 (00:30→10:39)
[2017-09-13] MEDS: CLINDAMYCIN INJ 600 MG in SODIUM CHLORIDE 0.9% INJ 100 ML IV SCH ×2 (00:30→06:28)
[2017-09-13] MEDS: CHLORHEXIDINE GLUCONATE 2 % 1 PACK (2 CLOTHS) TOP SCH (00:30)
[2017-09-13] MEDS: DEXAMETHASONE SOD PHOS 20 MG/5 ML VIAL IV PUSH SCH (01:38)
[2017-09-13] MEDS: HEPARIN SODIUM - SQ 10,000 UNITS/ML VIAL SQ SCH (06:26)
[2017-09-13 07:20] LABS: AUTOMATED NEUTROPHIL # 9.4 TH/MM3 (1.8-7.7); BASOPHIL % 0.1 % (0.0-2.0); HEMATOCRIT 39.4 % (39.0-51.0); LYMPH % 13.2 % (9.0-44.0); LYMPHOCYTE # 1.5 TH/MM3 (1.0-4.8); MEAN CELL VOLUME 94.9 FL (80.0-100.0); MEAN CORPUSCULAR HEMOGLOBIN 33.2 PG (27.0-34.0); MONO % 5.1 % (0.0-8.0); NEUT % 81.6 % (16.0-70.0); PLATELET COUNT 162 TH/MM3 (150-450); RED BLOOD COUNT 4.16 MIL/MM3 (4.50-5.90); RED CELL DISTRIBUTION WIDTH 12.5 % (11.6-17.2); WHITE BLOOD COUNT 11.5 TH/MM3 (4.0-11.0)
[2017-09-13 07:38] LABS: HEMO FLAGS AUTO DIFF
[2017-09-13 07:47] LABS: ALT (GPT) 84 U/L (12-78); ANION GAP 8 MEQ/L (5-15); AST (GOT) 18 U/L (15-37); BICARBONATE 24.4 MEQ/L (21.0-32.0); BLOOD UREA NITROGEN 10 MG/DL (7-18); CHLORIDE 108 MEQ/L (98-107); GLOMERULAR FILTRATION RATE 172 ML/MIN (>89); MAGNESIUM 2.1 MG/DL (1.5-2.5); POTASSIUM 3.9 MEQ/L (3.5-5.1); SODIUM (NA) 140 MEQ/L (136-145)
[2017-09-13 07:56] LABS: ALKALINE PHOSPHATASE 56 U/L (45-117); FREE T4 1.18 NG/DL (0.76-1.46); TOTAL BILIRUBIN ADULT 0.2 MG/DL (0.2-1.0)
[2017-09-13 08:00] VITALS: BP 117/66; PULSE 58; RESP 16; TEMP 96.5; O2SAT 96
--- NOTE | 2017-09-13 08:06 | MB ---
cc: LEE PAGAN MD DATE OF CONSULTATION 09/13/2017 CHIEF COMPLAINT Sore throat. HISTORY OF PRESENT ILLNESS A 27-year-old male presented to the emergency room two days ago complaining of a three-day history of sore throat, sinus congestion and cough. He was apparently seen at the time of the original onset of the sore throat in the emergency room, was given a prescription for antibiotics; however, he did not get this prescription filled and continued to worsen. He subsequently presented to the emergency room complaining of 10/10 pain in his throat and complaining of severe odynophagia, dysphagia and inability to swallow. However, he was not drooling and was able to tolerate his own saliva. The patient was admitted for further medical care. The patient reports to me today that his sore throat is much improved he just feels like he has sinus congestion. REVIEW OF SYSTEMS As above. PAST MEDICAL HISTORY Asthma as a child. PAST SURGICAL HISTORY No past surgical history. MEDICATIONS He is currently not on any medications as an outpatient. SOCIAL HISTORY One-pack per day tobacco. Denies alcohol or drug use. PHYSICAL EXAMINATION GENERAL: He is alert and oriented x3 in no acute stress. He is afebrile. VITAL SIGNS: Stable. ENT: Flexible laryngoscopy at bedside today reveals oral cavity/oropharynx without masses or lesions. 2+ tonsils. No significant edema. No pharyngeal edema. Airway is widely patent. The bilateral true vocal cords are mobile. Nose reveals some mild nasal edema and congestion but otherwise no definitive lesions or masses. NECK: Soft to palpation with no lymphadenopathy. ASSESSMENT AND PLAN Patient with acute pharyngitis, tonsillitis, upper respiratory infection. His airway is patent. RECOMMENDATIONS 1. Recommend a 10-day course of antibiotics. 2. Follow up with his primary care physician. 3. Encourage p.o. intake and liquids as tolerated. Thank you for this consultation. Lee Pagan AT/SSB /7:49 AM /7:59 AM
[2017-09-13 08:34] LABS: BANDS 2 % (0-6); PLASMA CELLS 2 % (0-0); POLYS (SEG NEUTROPHILS) 85 % (16-70); WBC DIFF SAMPLE 100
[2017-09-13 08:35] LABS: PLATELET MORPHOLOGY ENLARGED (NORMAL)
[2017-09-13 08:37] LABS: PLATELET ESTIMATE SMEAR NORMAL (NORMAL); SCAN/DIFF FINAL DIFF MANUAL
[2017-09-13] MEDS: DOCUSATE SODIUM 50 MG/SENNA 8.6 MG TAB PO SCH (09:00)
[2017-09-13] MEDS: FAMOTIDINE 20 MG TAB PO SCH (09:00)
[2017-09-13] MEDS: SODIUM CHLORIDE 0.9% FLUSH 10 ML FLUSH IV FLUSH SCH (09:00)
[2017-09-13] MEDS ORDERED: CLIN150 PO (09:26)
[2017-09-13] MEDS ORDERED: PRED20 PO (09:26)
[2017-09-13] MEDS ORDERED: FAMO20TA2 PO (09:26)
--- NOTE | 2017-09-13 09:26 | HHI.DCPOC ---
Discharge Care Plan Diagnosis: (1) Tonsillitis Your Health Problems Are: Difficulty with ADL Exercise Tolerance Goals to Promote Your Health * To prevent worsening of your condition and complications * To maintain your health at the optimal level Directions to Meet Your Goals Take your medications as prescribed Follow your dietary instruction Follow activity as directed Keep your appointments as scheduled Take your immunizations and boosters as scheduled If your symptoms worsen call your PCP, if no PCP go to Urgent Care Center or Emergency Room Smoking is Dangerous to Your Health. Avoid second hand smoke Call the 24-hour hour crisis hotline for domestic abuse at Fritz Nowak MD Sep 13, 2017 09:26
[2017-09-13] MEDS ORDERED: predniSONE 20 MG TAB PO SCH (09:30)
[2017-09-13 10:44] VITALS: RESP 16
[2017-09-13] MEDS ORDERED: CLINDAMYCIN 150 MG CAP PO SCH (12:00)
--- NOTE | 2017-09-13 12:18 | HHI.DS ---
Discharge Summary Admission Date Sep 11, 2017 at 00:41 Discharge Date: Sep 13, 2017 Admitting Diagnosis tonsillitis (1) Pharyngitis ICD Code: J02.9 - Acute pharyngitis, unspecified Diagnosis: Principal (2) Tonsillitis ICD Code: J03.90 - Acute tonsillitis, unspecified Diagnosis: Principal (3) right upper lobe density Diagnosis: Secondary Procedures none Brief History - From Admission 27-year-old male presenting for evaluation of sore throat, sinus congestion, cough. Patient states he was seen here 3 days ago but was unable to fill his prescription because it was too expensive. Since that time his symptoms have worsened. He took 1 200 mg ibuprofen tablet earlier today. He states his nose is clogged and he needs us to drain it. Patient states pain in his throat is a 10 out of 10 and he states he cannot swallow. He denies any drooling or dysphagia. CBC/BMP: 09/13/17 0618 09/13/1718 Significant Findings Laboratory Tests Test 09/10/17 23:00 09/11/17 03:35 09/12/17 06:15 09/13/17 06:18 White Blood Count 14.2 TH/MM3 (4.0-11.0) 11.5 TH/MM3 (4.0-11.0) Platelet Count 145 TH/MM3 (150-450) Neutrophils (%) (Auto) 73.2 % (16.0-70.0) 80.1 % (16.0-70.0) 81.6 % (16.0-70.0) Monocytes (%) (Auto) 13.9 % (0.0-8.0) Neutrophils # (Auto) 10.4 TH/MM3 (1.8-7.7) 8.5 TH/MM3 (1.8-7.7) 9.4 TH/MM3 (1.8-7.7) Monocytes # (Auto) 2.0 TH/MM3 (0-0.9) Random Glucose 129 MG/DL (74-106) 125 MG/DL (74-106) 118 MG/DL (74-106) Aspartate Amino Transf (AST/SGOT) 91 U/L (15-37) Alanine Aminotransferase (ALT/SGPT) 153 U/L (12-78) 100 U/L (12-78) 84 U/L (12-78) Sodium Level 132 MEQ/L (136-145) Red Blood Count 4.03 MIL/MM3 (4.50-5.90) 4.16 MIL/MM3 (4.50-5.90) Hematocrit 38.3 % (39.0-51.0) Mean Platelet Volume 12.3 FL (7.0-11.0) 12.5 FL (7.0-11.0) Creatinine 0.55 MG/DL (0.60-1.30) 0.56 MG/DL (0.60-1.30) Albumin 2.7 GM/DL (3.4-5.0) 2.9 GM/DL (3.4-5.0) Calcium Level 8.2 MG/DL (8.5-10.1) Phosphorus Level 2.4 MG/DL (2.5-4.9) Chloride Level 108 MEQ/L (98-107) 108 MEQ/L (98-107) Neutrophils % (Manual) 85 % (16-70) Lymphocytes % 5 % (9-44) Neutrophils # (Manual) 10.0 TH/MM3 (1.8-7.7) Plasma Cells 2 % (0-0) Platelet Morphology Comment ENLARGED (NORMAL) Free Triiodothyronine (T3) pg/dL 1.46 PG/ML (2.18-3.98) Thyroid Stimulating Hormone 3rd Gen 0.012 uIU/ML (0.358-3.740) Imaging Last Impressions Chest X-Ray 09/10/17 2250 Signed Impressions: Service Date/Time: Sunday, September 10, 2017 23:54 - CONCLUSION: 1. Perihilar interstitial densities which can be seen with bronchitis. 2. No pneumonia. Manan Dwyer MD Neck CT 09/10/17 0000 Signed Impressions: Service Date/Time: Monday, September 11, 2017 00:14 - CONCLUSION: 1. Narrowing of the nasopharynx and airway with prominent soft tissues and enlarged tonsils greater on the left. No definite abscess. 2. Ground glass density right upper lobe measuring 1.7 x [address] chest recommended in 3-6 months. Manan Dwyer MD PE at Discharge GENERAL: Well-developed, well-nourished in no distress SKIN: Warm and dry. HEAD: Atraumatic. Normocephalic. EYES: Pupils equal and round. No scleral icterus. No injection or drainage. ENT: No nasal bleeding or discharge. Mucous membranes pink and moist. NECK: Trachea midline. No JVD. Airway patent CARDIOVASCULAR: Regular rate and rhythm. RESPIRATORY: No accessory muscle use. Clear to auscultation. Breath sounds equal bilaterally. GASTROINTESTINAL: Abdomen soft, non-tender, nondistended. MUSCULOSKELETAL: Extremities without clubbing, cyanosis, or edema. No obvious deformities. NEUROLOGICAL: Awake and alert. No obvious cranial nerve deficits. Motor grossly within normal limits. Five out of 5 muscle strength in the arms and legs. Normal speech. Hospital Course Pharyngitis. Clinically improved - No evidence of retro-tonsillar abscess per CAT scan - Clinically improved and will continue Clindamycin outpatient - Blood cultures sputum culture - Status post ENT evaluation with patent airway - Tylenol when necessary -Which to by mouth steroids Mild leukocytosis secondary to steroids Hyperglycemia on steroids. Obtain A1c results to follow-up with PCP Decreased TSH but not suppressed. Free T4 within normal limits. T3 low likely sick euthyroid. Repeat TSH in 2 weeks Right upper lobe density. Repeat CT in 3 months DVT GI prophylaxis - Teds SCDs - Subcutaneous heparin - Pepcid Pt Condition on Discharge: Stable Discharge Disposition: Discharge Home Discharge Time: > 30 minutes Discharge Instructions DIET: Follow Instructions for: As Tolerated, No Restrictions Activities you can perform: Regular-No Restrictions Activities to Avoid: Driving Follow up Referrals: PCP Follow-up - 1 Week New Orders: CT THORAX W/O CONTRAST (CHEST) - 3 Months TSH 3RD GEN - 2 Weeks New Medications: Clindamycin (Cleocin) 150 Mg Cap 150 MG PO Q6HR for Infection, #28 CAP Famotidine (Famotidine) 20 Mg Tab 20 MG PO Q12HR for Manage Heartburn, #20 TAB Prednisone (Prednisone) 20 Mg Tab 20 MG PO DAILY for Control Inflammation, #4 TAB Continued Medications: Benzonatate (Tessalon Perles) 100 Mg Cap 200 MG PO TID PRN for COUGH for 5 Days, CAP 0 Refills Discontinued Medications: Doxycycline Hyclate (Doxycycline Hyclate) 100 Mg Cap 100 MG PO BID for Infection, #20 CAP 0 Refills Fritz Nowak MD Sep 13, 2017 12:18
[2017-09-13 16:03] LABS: HEMOGLOBIN A1a 0.7 %; HEMOGLOBIN A1b 0.7 %; HEMOGLOBIN Ao 85.8 %; HEMOGLOBIN LA1C 2.2 %; HEMOGLOBIN P3 3.6 %
== END 2017-09-13 13:40 | disposition home or self-care (01) | DRG 153 ==
LOC: NEPD 22:11 → NEDA 09-11 00:41 → N03B 09-11 03:20 → N06A 09-12 22:12
PROVIDERS: ADMIT Internal Medicine; ATTEND Internal Medicine
PROC: 0CJS8ZZ Inspection of Larynx, Via Natural or Artificial Opening Endoscopic (ICD-10-PCS; principal; 2017-09-13)
DX: J02.9 Acute pharyngitis, unspecified (principal); F17.210 Nicotine dependence, cigarettes, uncomplicated; J45.909 Unspecified asthma, uncomplicated; T38.0X5A Adverse effect of glucocorticoids and synthetic analogues, initial encounter; R73.9 Hyperglycemia, unspecified; R91.8 Other nonspecific abnormal finding of lung field
CPT/HCPCS: 70491; 71010; 80053; 83036; 83735; 84100; 84439; 84443; 84481; 85007; 85025; 85027; 87040; 87081; 87641; 87880; 96365; 96375; J1100; J1644; J1885; J2270; J2405; J2930; J7030; J7512; Q9967

== ENCOUNTER 2017-09-15 21:03 | Inpatient (IN) | payer OTHER ==
[~2017-09-15] VITALS: Ht 180.3 cm; Wt 79.0 kg
[~2017-09-15 21:03] MED LIST changes: +CLIN150 PO; -DOXY100C PO; +FAMO20TA2 PO; +PRED20 PO
[2017-09-15 21:08] VITALS: BP 142/87; PULSE 87; RESP 20; TEMP 98.5; O2SAT 100
[2017-09-15] MEDS ORDERED: FAMO20TA2 PO (21:30)
[2017-09-15] MEDS ORDERED: CLIN1CAP5 PO (21:30)
[2017-09-15] MEDS ORDERED: PRED20 PO (21:30)
[2017-09-15] MEDS ORDERED: DEXAMETHASONE SOD PHOS 20 MG/5 ML VIAL IV PUSH ONE (21:45)
[2017-09-15] MEDS ORDERED: AMPICILLIN-SULBACTAM INJ 3 GM in SODIUM CHLORIDE 0.9% INJ 100 ML IV ONE (21:45)
[2017-09-15] MEDS ORDERED: SENNOSIDES 8.6 MG TAB PO PRN (22:00)
[2017-09-15] MEDS ORDERED: NALOXONE HCL 0.4 MG/ML AMP IV PUSH PRN ×2 (22:00→23:30)
[2017-09-15] MEDS ORDERED: BISACODYL 10 MG SUPP RECTAL PRN (22:00)
[2017-09-15] MEDS ORDERED: MAGNESIUM HYDROXIDE SUSP 30 ML CUP PO PRN (22:00)
[2017-09-15] MEDS ORDERED: LACTULOSE SYRUP 20 GM/30 ML CUP PO PRN (22:00)
--- NOTE | 2017-09-15 22:09 | PD ---
HPI Chief Complaint: Oral / Dental Pain or Problem Time Seen by Provider: 21:24 Travel History International Travel<30 days: No Contact w/Intl Traveler<30days: No Traveled to known affect area: No History of Present Illness HPI 27-year-old man presents to the emergency department complaining of worsening throat swelling and difficulty swallowing. He was seen in the emergency department almost a week ago was sinus tonsillitis. Is given medications. Initially is not compliant was hospitalized of worsening symptoms were IV steroids IV antibiotics. Was seen by ENT at that point. He was reportedly improving. He was discharged 2 days ago on clindamycin and prednisone which she states he's been taking any has with him. He states despite that he said worsening pain and trouble swelling especially on the left with left ear fullness and pain, left cervical adenopathy, and worsening difficulty swallowing. History Past Medical History Medical History: Denies Significant Hx Tetanus Vaccination: Unknown Influenza Vaccination: No Social History Alcohol Use: Yes (OCC) Tobacco Use: Yes (1PPD) Allergies-Medications (Allergen,Severity, Reaction): Coded Allergies: tramadol (Verified Allergy, Mild, Hives, 09/10/17) Reported Meds & Prescriptions Reported Meds & Active Scripts Active Reported Clindamycin (Clindamycin HCl) 150 Mg Cap 150 Mg PO Q6H Famotidine 20 Mg Tab 20 Mg PO BID Prednisone 20 Mg Tab 20 Mg PO DAILY Review of Systems Except as stated in HPI: all other systems reviewed are Neg Physical Exam Narrative GENERAL: 27-year-old man, hot potato voice, spitting a little bit but mostly able to swallow secretions. SKIN: Focused skin assessment warm/dry. ENT: A little bit of thrush on the soft palate. The entire soft palate appear somewhat edematous and there is fullness and asymmetry on the left with uvular deviation. Moderate cervical adenopathy. TMs normal bilaterally. NECK: Trachea midline. No JVD. Moderate cervical adenopathy and tenderness. CARDIOVASCULAR: Regular rate and rhythm. No murmur appreciated. RESPIRATORY: No accessory muscle use. Clear to auscultation. Breath sounds equal bilaterally. GASTROINTESTINAL: Abdomen soft, non-tender, nondistended. Hepatic and splenic margins not palpable. MUSCULOSKELETAL: No obvious deformities. No clubbing. No cyanosis. No edema. NEUROLOGICAL: Awake and alert. No obvious cranial nerve deficits. Motor grossly within normal limits. Normal speech. PSYCHIATRIC: Appropriate mood and affect; insight and judgment normal. Data Data Last Documented VS Vital Signs Date Time Temp Pulse Resp B/P (MAP) Pulse Ox O2 Delivery O2 Flow Rate FiO2 09/15/17 21:08 98.5 87 20 142/87 (105) 100 Room Air Orders Orders Complete Blood Count With Diff (09/15/17 21:41) Comprehensive Metabolic Panel (09/15/17 21:41) Iv Access Insert/Monitor (09/15/17 21:41) Ampicillin-Sulbactam Inj (Unasyn Inj) (09/15/17 21:45) Dexamethasone Inj (Decadron Inj) (09/15/17 21:45) Place In Observation (09/15/17 ) Vital Signs (Adult) Q4H (09/15/17 21:48) Activity Oob Ad Michelle (09/15/17 21:48) Diet Npo (09/16/17 Breakfast) Sodium Chlor 0.9% 1000 Ml Inj (Ns 1000 M (09/15/17 21:48) Sodium Chloride 0.9% Flush (Ns Flush) (09/15/17 22:00) Sodium Chloride 0.9% Flush (Ns Flush) (09/16/17 09:00) Comprehensive Metabolic Panel (09/16/17 06:00) Complete Blood Count With Diff (09/16/17 06:00) Case Management Consult (09/15/17 21:48) Naloxone Inj (Narcan Inj) (09/15/17 22:00) Magnesium Hydroxide Liq (Milk Of Magnesi (09/15/17 22:00) Sennosides (Senokot) (09/15/17 22:00) Bisacodyl Supp (Dulcolax Supp) (09/15/17 22:00) Lactulose Liq (Lactulose Liq) (09/15/17 22:00) Ampicillin-Sulbactam Inj (Unasyn Inj) (09/16/17 05:00) ^ Other Nursing Orders (09/15/17 21:52) Admit Order (Ed Use Only) (09/15/17 ) Consult Ent (09/15/17 ) Methylprednisolone So Succ Inj (Solumedr (09/16/17 00:00) MDM Medical Decision Making Medical Screen Exam Complete: Yes Emergency Medical Condition: Yes Differential Diagnosis Peritonsillar abscess, tonsillitis, adenopathy, other Narrative Course Medical decision making INITIAL: 27-year-old man, clinically has a left peritonsillar abscess. Just had a CT scan of his neck with a past week. He looks well. He looks uncomfortable, but nontoxic. Diagnosis Primary Impression: Tonsillar abscess Admitting Information Admitting Physician Requests: Observation Damian Otero MD Sep 15, 2017 22:09
--- NOTE | 2017-09-15 22:11 | HHI.HP ---
[facility] No Primary Care Physician Admission Diagnosis Left [employer]PER Diagnoses: Travel History International Travel<30 Days: No Contact w/Intl Traveler <30 Da: No Traveled to Known Affected Are: No History of Present Illness 27-year-old male with recent admission 09/10-09/13 for tonsillitis, during which ENT was consulted, and he was treated with broad-spectrum antibiotics, steroids. He was discharged home with clindamycin and prednisone, however has had worsening sore throat, difficulty swallowing. He does not feel as if she has difficulty breathing at this time. He reports fever this morning of 101 Fahrenheit. Denies any chest pain or shortness of breath. Denies any nausea or vomiting. Denies any lightheadedness or dizziness. Review of Systems Except as stated in HPI: all other systems reviewed are Neg Past Family Social History Past Medical History Asthma as a child Past Surgical History History of left fifth finger infection with surgery Allergies: Coded Allergies: tramadol (Verified Allergy, Mild, Hives, 09/10/17) Family History denies any family medical history in parents. Social History Patient smokes one half pack per day since his teenage years. Has been smoking one to 2 cigarettes a day since he was in the hospital last time however. Physical Exam Vital Signs Vital Signs Date Time Temp Pulse Resp B/P (MAP) Pulse Ox O2 Delivery O2 Flow Rate FiO2 09/15/17 21:08 98.5 87 20 142/87 (105) 100 Room Air Physical Exam GENERAL: This is a well-nourished, well-developed patient, appears uncomfortable. SKIN: No rashes, ecchymoses or lesions. Cool and dry. HEAD: Atraumatic. Normocephalic. No temporal or scalp tenderness. EYES: Pupils equal round and reactive. Extraocular motions intact. No scleral icterus. No injection or drainage. ENT: Nose without bleeding, purulent drainage or septal hematoma. Left tonsillar hypertrophy, posterior pharynx fullness. Anterior cervical lymphadenopathy. NECK: Trachea midline. No JVD or lymphadenopathy. Supple, nontender, no meningeal signs. CARDIOVASCULAR: Regular rate and rhythm without murmurs, gallops, or rubs. RESPIRATORY: Clear to auscultation. Breath sounds equal bilaterally. No wheezes , rales, or rhonchi. GASTROINTESTINAL: Abdomen soft, non-tender, nondistended. No hepato-splenomegaly , or palpable masses. No guarding. MUSCULOSKELETAL: Extremities without clubbing, cyanosis, or edema. No joint tenderness, effusion, or edema noted. No calf tenderness. Negative Homans sign bilaterally. NEUROLOGICAL: Awake and alert. Cranial nerves II through XII intact. Motor and sensory grossly within normal limits. Five out of 5 muscle strength in all muscle groups. Normal speech. Caprini VTE Risk Assessment Caprini VTE Risk Assessment: No/Low Risk (score <= 1) Caprini Risk Assessment Model Point Value = 1 Point Value = 2 Point Value = 3 Point Value = 5 Age 41-60 Minor surgery BMI > 25 kg/m2 Swollen legs Varicose veins or History of unexplained or recurrent spontaneous Oral contraceptives or hormone replacement Sepsis (< 1 month) Serious lung disease, including pneumonia (< 1 month) Abnormal pulmonary function Acute myocardial infarction Congestive heart failure (< 1 month) History of inflammatory bowel disease Medical patient at bed rest Age 61-74 Arthroscopic surgery Major open surgery (> 45 min) Laparoscopic surgery (> 45 min) Malignancy Confined to bed (> 72 hours) Immobilizing plaster cast Central venous access Age >= 75 History of VTE Family history of VTE Factor V Leiden Prothrombin [id number] Lupus anticoagulant Anticardiolipin antibodies Elevated serum homocysteine Heparin-induced thrombocytopenia Other congenital or acquired thrombophilia Stroke (< 1 month) Elective arthroplasty Hip, pelvis, or leg fracture Acute spinal cord injury (< 1 month) Prophylaxis Regimen Total Risk Factor Score Risk Level Prophylaxis Regimen 0-1 Low Early ambulation 2 Moderate Order ONE of the following: *Sequential Compression Device (SCD) *Heparin 5000 units SQ BID 3-4 Higher Order ONE of the following medications: *Heparin 5000 units SQ TID *Enoxaparin/Lovenox 40 mg SQ daily (WT < 150 kg, CrCl > 30 mL/min) *Enoxaparin/Lovenox 30 mg SQ daily (WT < 150 kg, CrCl > 10-29 mL/min) *Enoxaparin/Lovenox 30 mg SQ BID (WT < 150 kg, CrCl > 30 mL/min) AND/OR *Sequential Compression Device (SCD) 5 or more Highest Order ONE of the following medications: *Heparin 5000 units SQ TID (Preferred with Epidurals) *Enoxaparin/Lovenox 40 mg SQ daily (WT < 150 kg, CrCl > 30 mL/min) *Enoxaparin/Lovenox 30 mg SQ daily (WT < 150 kg, CrCl > 10-29 mL/min) *Enoxaparin/Lovenox 30 mg SQ BID (WT < 150 kg, CrCl > 30 mL/min) AND *Sequential Compression Device (SCD) Assessment and Plan Assessment and Plan //peritonsillar abscess -Worsening. With reported fever today. -CT scan last admission reviewed. -CBC, CMP pending. Close monitoring -Consult placed to ENT. -We'll place on IV Unasyn, IV steroids. //Tobacco abuse. Cessation counseling provided. Discussed Condition With Patient, nurse, ED physician. Peng Reilly MD Sep 15, 2017 22:11
[2017-09-15] MEDS ORDERED: LIDOCAINE VISCOUS 2% SOLN 15 ML UDC SWISH-SWAL PRN (22:15)
[2017-09-15 22:37] LABS: AUTOMATED NEUTROPHIL # 10.5 TH/MM3 (1.8-7.7); BASOPHIL % 0.2 % (0.0-2.0); EOSINOPHIL # 0.1 TH/MM3 (0-0.4); EOSINOPHIL % 0.7 % (0.0-4.0); HEMOGLOBIN 16.8 GM/DL (13.0-17.0); LYMPHOCYTE # 2.3 TH/MM3 (1.0-4.8); MEAN CELL VOLUME 93.7 FL (80.0-100.0); MEAN CORPUSCULAR HEMOGLOBIN 32.8 PG (27.0-34.0); MEAN PLATELET VOLUME 11.4 FL (7.0-11.0); MONO % 11.6 % (0.0-8.0); MONOCYTE # 1.7 TH/MM3 (0-0.9); NEUT % 71.5 % (16.0-70.0); PLATELET COUNT 170 TH/MM3 (150-450); RED BLOOD COUNT 5.13 MIL/MM3 (4.50-5.90); RED CELL DISTRIBUTION WIDTH 12.3 % (11.6-17.2); WHITE BLOOD COUNT 14.7 TH/MM3 (4.0-11.0)
[2017-09-15] MEDS ORDERED: KETOROLAC TROMETHAMINE 30 MG/ML (IVP) VIAL IVP ONE (22:45)
[2017-09-15 22:58] LABS: ALBUMIN 3.4 GM/DL (3.4-5.0); ALT (GPT) 74 U/L (12-78); AST (GOT) 32 U/L (15-37); BICARBONATE 26.6 MEQ/L (21.0-32.0); BLOOD UREA NITROGEN 9 MG/DL (7-18); CALCIUM 9.2 MG/DL (8.5-10.1); CHLORIDE 99 MEQ/L (98-107); CREATININE 0.81 MG/DL (0.60-1.30); GLOMERULAR FILTRATION RATE 113 ML/MIN (>89); GLUCOSE,RANDOM 108 MG/DL (74-106); SODIUM (NA) 136 MEQ/L (136-145)
[2017-09-15 23:08] LABS: ALKALINE PHOSPHATASE 71 U/L (45-117); TOTAL BILIRUBIN ADULT 0.4 MG/DL (0.2-1.0); TOTAL PROTEIN 7.8 GM/DL (6.4-8.2)
[2017-09-15] MEDS ORDERED: MORPHINE SULFATE 4 MG/ML INJ IV PUSH PRN ×3 (23:30)
[2017-09-15] MEDS: SODIUM CHLOR 0.9% 1000 ML INJ 1,000 ML IV SCH (23:36)
[2017-09-15] MEDS: methylPREDNISolone SOD SUCC 40 MG/1 ML VIAL IV PUSH SCH (23:37)
[2017-09-15 23:48] VITALS: BP 140/76; PULSE 76; RESP 18; O2SAT 100
[2017-09-16 00:10] VITALS: BP 147/76; PULSE 77; RESP 16; TEMP 99.3; O2SAT 98
[2017-09-16] MEDS ORDERED: HYDROmorphone HCL PF 0.5 MG/0.5 ML SYRINGE IV PUSH PRN (01:00)
[2017-09-16] MEDS: HYDROmorphone HCL PF 1 MG/ML VIAL IV PUSH PRN ×5 (01:28→20:19)
[2017-09-16 04:00] VITALS: BP 121/76; PULSE 85; RESP 17; TEMP 97.5; O2SAT 96
[2017-09-16] MEDS ORDERED: AMPICILLIN-SULBACTAM INJ 3 GM VIAL IV SCH (05:00)
[2017-09-16] MEDS ORDERED: AMPICILLIN-SULBACTAM INJ 3 GM VIAL IM SCH (05:00)
[2017-09-16] MEDS: methylPREDNISolone SOD SUCC 40 MG/1 ML VIAL IV PUSH SCH ×4 (05:13→23:12)
[2017-09-16] MEDS: AMPICILLIN/SULBAC 3 GM/NS 100 ML IV SCH ×8 (05:13→23:11)
[2017-09-16 06:19] LABS: AUTOMATED NEUTROPHIL # 13.4 TH/MM3 (1.8-7.7); BASOPHIL % 0.1 % (0.0-2.0); HEMATOCRIT 47.1 % (39.0-51.0); HEMOGLOBIN 16.6 GM/DL (13.0-17.0); LYMPH % 5.9 % (9.0-44.0); LYMPHOCYTE # 0.9 TH/MM3 (1.0-4.8); MEAN CORPUSCULAR HEMOGLOBIN 33.1 PG (27.0-34.0); MEAN CORPUSCULAR HGB CONC 35.2 % (32.0-36.0); MEAN PLATELET VOLUME 11.7 FL (7.0-11.0); MONO % 1.3 % (0.0-8.0); MONOCYTE # 0.2 TH/MM3 (0-0.9); NEUT % 92.7 % (16.0-70.0); PLATELET COUNT 203 TH/MM3 (150-450); RED BLOOD COUNT 5.01 MIL/MM3 (4.50-5.90); RED CELL DISTRIBUTION WIDTH 12.6 % (11.6-17.2); WHITE BLOOD COUNT 14.4 TH/MM3 (4.0-11.0)
[2017-09-16 06:38] LABS: ALBUMIN 3.6 GM/DL (3.4-5.0); AST (GOT) 21 U/L (15-37); BICARBONATE 26.8 MEQ/L (21.0-32.0); BLOOD UREA NITROGEN 9 MG/DL (7-18); CALCIUM 9.2 MG/DL (8.5-10.1); CHLORIDE 100 MEQ/L (98-107); CREATININE 0.85 MG/DL (0.60-1.30); GLOMERULAR FILTRATION RATE 107 ML/MIN (>89); GLUCOSE,RANDOM 159 MG/DL (74-106); SODIUM (NA) 134 MEQ/L (136-145)
[2017-09-16 06:40] LABS: ALT (GPT) 74 U/L (12-78)
[2017-09-16 06:42] LABS: ALKALINE PHOSPHATASE 80 U/L (45-117); TOTAL BILIRUBIN ADULT 0.5 MG/DL (0.2-1.0); TOTAL PROTEIN 8.2 GM/DL (6.4-8.2)
[2017-09-16] MEDS: SODIUM CHLOR 0.9% 1000 ML INJ 1,000 ML IV SCH ×2 (07:48→23:12)
[2017-09-16 08:00] VITALS: BP 132/74; PULSE 69; RESP 17; TEMP 97.4; O2SAT 95
[2017-09-16] MEDS: SODIUM CHLORIDE 0.9% FLUSH 10 ML FLUSH IV FLUSH SCH ×2 (08:22→20:24)
--- NOTE | 2017-09-16 10:08 | HHI.PR ---
Subjective Remarks Follow-up left peritonsillar abscess. Complaining of odynophagia. Claims compliance with medications. Discussed with RN and ENT Objective Vitals Vital Signs Date Time Temp Pulse Resp B/P (MAP) Pulse Ox O2 Delivery O2 Flow Rate FiO2 09/16/17 06:58 18 09/16/17 04:00 97.5 85 17 121/76 (91) 96 09/16/17 00:10 99.3 77 16 147/76 (99) 98 09/16/17 00:09 17 09/16/17 00:03 09/15/17 23:48 76 18 140/76 (97) 100 Room Air 09/15/17 21:08 98.5 87 20 142/87 (105) 100 Room Air I/O 09/15/17 09/15/17 09/15/17 09/16/17 09/16/17 09/16/17 07:00 15:00 23:00 07:00 15:00 23:00 Intake Total 200 ml Balance 200 ml Intake Oral 0 ml IV Total 200 ml # Voids 1 Result Diagram: 09/16/17 0538 09/16/17 0538 Objective Remarks GENERAL: This is a well-nourished, well-developed patient, appears uncomfortable. SKIN: No rashes, ecchymoses or lesions. Cool and dry. ENT: Nose without bleeding, purulent drainage or septal hematoma. Left tonsillar hypertrophy, posterior pharynx fullness. Anterior cervical lymphadenopathy. NECK: Trachea midline. No JVD or lymphadenopathy. Supple, nontender, no meningeal signs. CARDIOVASCULAR: Regular rate and rhythm without murmurs, gallops, or rubs. RESPIRATORY: Clear to auscultation. Breath sounds equal bilaterally. No wheezes , rales, or rhonchi. GASTROINTESTINAL: Abdomen soft, non-tender, nondistended. No guarding. MUSCULOSKELETAL: Extremities without clubbing, cyanosis, or edema. No joint tenderness, effusion, or edema noted. No calf tenderness. Negative Homans sign bilaterally. NEUROLOGICAL: Awake and alert. Cranial nerves II through XII intact. Motor and sensory grossly within normal limits. Five out of 5 muscle strength in all muscle groups. Normal speech. A/P Problem List: (1) Tonsillar abscess ICD Code: J36 - Peritonsillar abscess Status: Acute Assessment and Plan Left peritonsillar abscess with failed outpatient therapy. Continue IV Unasyn, IV steroids and pain management. Counseled regarding narcotics. Liquid diet and follow-up CT of the neck. Discussed with ENT Hyperglycemia. A1c within normal limits Sick euthyroid. Right upper lung density. Follow-up CT in 3 months Tobacco abuse. Cessation counseling provided. Discussed with nursing staff, patient developed altered mental status after his visitors left this morning. Patient on narcotic. Currently in normal 4 nonfocal. Neurochecks. We'll screen VISITORS Low risk for DVT Fritz Nowak MD Sep 16, 2017 10:08
[2017-09-16] MEDS ORDERED: IOHEXOL 350 MG/ML 10 ML VIAL (for RAD DIAG) IVCONTRAST ONE (10:27)
--- NOTE | 2017-09-16 10:40 | RADRPT ---
EXAM DATE/TIME: 09/16/2017 10:08 [facility] COMPARISON: CT SOFT TISSUE NECK W CONTRAST, September 11, 2017, 0:14. INDICATIONS : Left side thorat and mouth pain and swelling. IV CONTRAST: 83 cc Omnipaque 350 (iohexol) IV RADIATION DOSE: 13.14 CTDIvol (mGy) MEDICAL HISTORY : Hepatitis C. SURGICAL HISTORY : None. ENCOUNTER: Initial ACUITY: 1 week PAIN SCALE: 9/10 LOCATION: Left facial TECHNIQUE: Volumetric scanning of the neck was performed. Using automated exposure control and adjustment of th e mA and/or kV according to patient size, radiation dose was kept as low as reasonably achievable to obtain optimal diagnostic quality images. DICOM format image data is available electronically for r eview and comparison. FINDINGS: NASOPHARYNX: The nasopharyngeal airway has a normal configuration. No mucosal thickening or mass is seen. OROPHARYNX: The intrinsic muscles of the tongue are symmetric. There is a large collection with its epicenter in the region of the left tonsillar pillar measuring 3.0 x 4.1 x 5.0 cm consistent with left tonsillar a bscess until proven otherwise. The prevertebral soft tissues are not thickened. LARYNX: The supraglottic, glottic, and infraglottic structures are intact. PARAPHARYNGEAL: The parapharyngeal space is intact. SALIVARY GLANDS: The parotid and submandibular glands are intact. LYMPH NODES: No enlarged or necrotic-appearing nodes. THYROID: Homogeneous enhancement without evidence of nodule. BONES: Unremarkable. CONCLUSION: Large fluid collection with its epicenter in the region of the left tonsillar pillar and measuring 3.2 x 4.1 x 5.0 cm consistent with probable left tonsillar abscess. Clinical correlatio n is recommended. Nakul Tesfaye MD on September 16, 2017 at 10:33 Board Certified Radiologist. This report was verified electronically.
[2017-09-16] MEDS: FAMOTIDINE 20 MG/2 ML VIAL IV PUSH SCH ×2 (11:18→20:18)
[2017-09-16 12:00] VITALS: BP 133/72; PULSE 67; RESP 18; TEMP 97.8; O2SAT 96
[2017-09-16 15:23] VITALS: BP 127/71; PULSE 68; RESP 16; TEMP 96; O2SAT 95
[2017-09-16 20:40] VITALS: BP 122/72; PULSE 69; RESP 18; TEMP 97.4; O2SAT 97
[2017-09-17] VITALS (7 sets, daily range): BP systolic 121–141; BP diastolic 59–73; PULSE 56–76; RESP 16–19; TEMP 96.3–97.6; O2SAT 97–100
[2017-09-17] MEDS: HYDROmorphone HCL PF 1 MG/ML VIAL IV PUSH PRN ×6 (00:22→22:32)
[2017-09-17] MEDS ORDERED: INSULIN HUMAN REGULAR 1,000 UNITS/10 ML VIAL SQ PRN (01:00)
[2017-09-17] MEDS ORDERED: LACTATED RINGER'S 1000 ML IV PRN (01:00)
[2017-09-17] MEDS ORDERED: SODIUM CHLORID 0.9% 500 ML IV PRN (01:00)
[2017-09-17] MEDS ORDERED: CHLORHEXIDINE GLUCONATE 2 % 1 PACK (2 CLOTHS) TOPICAL PRN (01:00)
[2017-09-17] MEDS ORDERED: POVIDONE IODINE 5% (ANTISEPSIS KIT) 4 APPLICATIONS EACH NARE PRN (01:00)
[2017-09-17] MEDS: SODIUM CHLOR 0.9% 1000 ML INJ 1,000 ML IV SCH ×2 (03:48→22:30)
[2017-09-17] MEDS: AMPICILLIN/SULBAC 3 GM/NS 100 ML IV SCH ×8 (05:56→22:35)
[2017-09-17] MEDS: methylPREDNISolone SOD SUCC 40 MG/1 ML VIAL IV PUSH SCH ×4 (05:57→22:40)
--- NOTE | 2017-09-17 08:44 | HHI.PR ---
Subjective Remarks Follow-up left peritonsillar abscess. Complaining of pain. States he can tolerate hydrocodone aware of addicting potential. Discussed with RN Objective Vitals Vital Signs Date Time Temp Pulse Resp B/P (MAP) Pulse Ox O2 Delivery O2 Flow Rate FiO2 09/17/17 06:31 17 09/17/17 04:26 96.9 60 18 127/67 (87) 97 09/17/17 03:08 Room Air 09/17/17 00:08 96.5 76 18 121/69 (86) 99 09/16/17 20:40 97.4 69 18 122/72 (89) 97 09/16/17 15:23 96.0 68 16 127/71 (89) 95 09/16/17 12:00 97.8 67 18 133/72 (92) 96 I/O 09/16/17 09/16/17 09/16/17 09/17/17 09/17/17 09/17/17 07:00 15:00 23:00 07:00 15:00 23:00 Intake Total 200 ml 100 ml 560 ml 200 ml Balance 200 ml 100 ml 560 ml 200 ml Intake Oral 0 ml 560 ml 0 ml IV Total 200 ml 100 ml 200 ml # Voids 1 7 2 3 # Bowel Movements 2 0 1 Result Diagram: 09/16/17 0538 09/16/17 0538 Imaging Last Impressions Neck CT 09/16/17 0000 Signed Impressions: Service Date/Time: Saturday, September 16, 2017 10:08 - CONCLUSION: Large fluid collection with its epicenter in the region of the left tonsillar pillar and measuring 3.2 x 4.1 x 5.0 cm consistent with probable left tonsillar abscess. Clinical correlation is recommended. Nakul Tesfaye MD Objective Remarks GENERAL: This is a well-nourished, well-developed patient, appears uncomfortable. SKIN: No rashes, ecchymoses or lesions. Cool and dry. ENT: Nose without bleeding, purulent drainage or septal hematoma. Left tonsillar hypertrophy, posterior pharynx fullness. Anterior cervical lymphadenopathy. Oral thrush noted NECK: Trachea midline. No JVD or lymphadenopathy. Supple, nontender, no meningeal signs. CARDIOVASCULAR: Regular rate and rhythm without murmurs, gallops, or rubs. RESPIRATORY: Clear to auscultation. Breath sounds equal bilaterally. No wheezes , rales, or rhonchi. GASTROINTESTINAL: Abdomen soft, non-tender, nondistended. No guarding. MUSCULOSKELETAL: Extremities without clubbing, cyanosis, or edema. No joint tenderness, effusion, or edema noted. No calf tenderness. Negative Homans sign bilaterally. NEUROLOGICAL: Awake and alert. Cranial nerves II through XII intact. Motor and sensory grossly within normal limits. Five out of 5 muscle strength in all muscle groups. Normal speech. A/P Problem List: (1) Tonsillar abscess ICD Code: J36 - Peritonsillar abscess Status: Acute Assessment and Plan Left peritonsillar abscess with failed outpatient therapy. Continue IV Unasyn, IV steroids and pain management. Counseled regarding narcotics, add liquid hydrocodone. Consider NSAIDs if okay with ENT. 4 I and D today Oral thrush. Nystatin liquid for 2 weeks Hyperglycemia. A1c within normal limits Sick euthyroid. Right upper lung density. Follow-up CT in 3 months Tobacco abuse. Cessation counseling provided. Discussed with nursing staff, patient developed altered mental status after his visitors left this morning. Patient on narcotic. Currently oriented 4 nonfocal. Neurochecks. We'll screen VISITORS Low risk for DVT Fritz Nowak MD Sep 17, 2017 08:44
[2017-09-17] MEDS: SODIUM CHLORIDE 0.9% FLUSH 10 ML FLUSH IV FLUSH SCH (09:00)
[2017-09-17] MEDS ORDERED: NALOXONE HCL 0.4 MG/ML AMP IV PUSH PRN (09:30)
[2017-09-17] MEDS ORDERED: ACETAMINOPHEN 325 MG TAB PO PRN (09:30)
[2017-09-17] MEDS: FAMOTIDINE 20 MG/2 ML VIAL IV PUSH SCH ×2 (09:53→22:45)
[2017-09-17] MEDS ORDERED: *MEPERIDINE 25 MG INJ VIAL PERIprocedural Use ONLY ONE (11:30)
[2017-09-17] MEDS ORDERED: *morphine SULFATE 8 MG/ML PERIprocedure ONLY ONE (11:38)
[2017-09-17] MEDS ORDERED: DO NOT ADM ANY ANTICOAGULANT DRUGS PRN (12:00)
--- NOTE | 2017-09-17 12:47 | MB ---
cc: LEE PAGAN MD DATE OF CONSULTATION: 09/17/2017 CHIEF COMPLAINT: Throat pain. HISTORY OF PRESENT ILLNESS A 27 year-old male who was recently admitted from September 10 to September 13 for severe acute tonsillitis with no identifiable peritonsillar abscess. He was subsequently discharged in a normal state of health with broad-spectrum antibiotics. However, he subsequently returned to the hospital only three days later complaining of severe sore throat and pain, and increasing fevers. There was some question as to whether he was actually taking his antibiotics after discharge. The patient reports today that his throat is incredibly painful. REVIEW OF SYSTEMS: As per the HPI. PAST MEDICAL HISTORY: Significant for surgery on his left finger as a child. ALLERGIES: Tramadol. SOCIAL HISTORY: He reports that he smokes [id number] packs per day. Denies any alcohol use or drug use. PHYSICAL EXAMINATION: He is alert, oriented x3, in no acute distress. Vital signs stable. HEENT: Flexible laryngoscopy at bedside shows left tonsillar fullness with deviation of the uvula, narrowing of the airway, however, he does have a patent airway. There is significant purulent exudate on both tonsils with evidence of a left peritonsillar abscess. Neck: Reveals palpable adenopathy bilaterally. CT scan reviewed shows a large 3.5 cm left peritonsillar abscess with the large fluid collection. ASSESSMENT/PLAN The patient to the operating room for incision and drainage of left peritonsillar abscess followed by 24-48 hours of IV antibiotics with culture driven antibiotic therapy at discharge. Lee Pagan AT/SUDHA /11:00 AM /12:40 PM
[2017-09-17] MEDS: NYSTATIN SUSP 500,000 U/5 ML CUP SWISH-SPIT SCH ×3 (12:49→22:39)
[2017-09-17] MEDS: SODIUM CHLORIDE 0.9% FLUSH 10 ML FLUSH IV FLUSH PRN (22:32)
[2017-09-18 00:15] VITALS: BP 137/65; PULSE 67; RESP 18; TEMP 96.5; O2SAT 97
[2017-09-18] MEDS: HYDROmorphone HCL PF 1 MG/ML VIAL IV PUSH PRN ×3 (04:08→19:42)
[2017-09-18] MEDS: AMPICILLIN/SULBAC 3 GM/NS 100 ML IV SCH ×8 (04:09→23:56)
[2017-09-18 05:52] LABS: AUTOMATED NEUTROPHIL # 24.2 TH/MM3 (1.8-7.7); BASOPHIL % 0.1 % (0.0-2.0); HEMATOCRIT 43.5 % (39.0-51.0); LYMPH % 6.3 % (9.0-44.0); LYMPHOCYTE # 1.7 TH/MM3 (1.0-4.8); MEAN CELL VOLUME 94.2 FL (80.0-100.0); MEAN CORPUSCULAR HEMOGLOBIN 32.5 PG (27.0-34.0); MEAN CORPUSCULAR HGB CONC 34.5 % (32.0-36.0); MEAN PLATELET VOLUME 11.3 FL (7.0-11.0); MONO % 4.2 % (0.0-8.0); MONOCYTE # 1.1 TH/MM3 (0-0.9); NEUT % 89.4 % (16.0-70.0); PLATELET COUNT 203 TH/MM3 (150-450); RED BLOOD COUNT 4.62 MIL/MM3 (4.50-5.90); RED CELL DISTRIBUTION WIDTH 12.4 % (11.6-17.2)
[2017-09-18] MEDS: ACETAMINOPHEN 325MG/HYDROcodone 7.5MG/15ML UDC PO PRN ×3 (06:09→15:27)
[2017-09-18] MEDS: methylPREDNISolone SOD SUCC 40 MG/1 ML VIAL IV PUSH SCH (06:15)
[2017-09-18] MEDS: SODIUM CHLORIDE 0.9% FLUSH 10 ML FLUSH IV FLUSH PRN (06:15)
[2017-09-18 06:19] LABS: BICARBONATE 27.9 MEQ/L (21.0-32.0); CALCIUM 8.3 MG/DL (8.5-10.1); CREATININE 0.61 MG/DL (0.60-1.30)
[2017-09-18] MEDS: NYSTATIN SUSP 500,000 U/5 ML CUP SWISH-SPIT SCH ×4 (07:19→19:41)
[2017-09-18] MEDS: FAMOTIDINE 20 MG/2 ML VIAL IV PUSH SCH ×2 (07:21→19:41)
[2017-09-18 07:56] VITALS: BP 123/59; PULSE 58; RESP 18; TEMP 96; O2SAT 96
--- NOTE | 2017-09-18 08:51 | MP ---
cc: LEE PAGAN MD DATE OF OPERATION September 17, 2017 PREOPERATIVE DIAGNOSIS Peritonsillar abscess. POSTOPERATIVE DIAGNOSIS Peritonsillar abscess. PROCEDURE Drainage of left peritonsillar abscess. ANESTHESIA General endotracheal anesthesia was used. COMPLICATIONS None. SPECIMEN OBTAINED Fluid sent for culture and sensitivity. INDICATION FOR PROCEDURE This is a 27-year-old male with worsening tonsillitis, subsequently developing a left peritonsillar abscess. Requires drainage after unresponsive maximal medical therapy. The risks and benefits were described in detail. The patient understood and wished to proceed as planned. DESCRIPTION OF THE OPERATIVE PROCEDURE After informed consent was obtained, the patient was taken to the operating room and placed supine on the operating room table. General endotracheal anesthesia was initiated following which the head of the bed was turned approximately 90 degrees. At this time the patient was prepped and draped in standard surgical fashion. Once this was completed an operative time-out was undertaken. Once everyone was in agreement, the procedure moved forward as planned. At this time a Miguel Angel-Seb mouth gag was placed in the patient's oral cavity exposing the tonsils bilaterally. There was a large peritonsillar abscess evident in the soft palate/superior pole the left tonsil. Using an 18-gauge spinal needle and syringe, 20 cc of purulent material was expressed out of this peritonsillar area, then sent for culture and sensitivity. At this time a stab incision was placed at the area where the needle drainage was performed to allow continued drainage. Once this completed, this marked the end of the procedure. The patient was taken out of suspension, was awoken, extubated and transferred back in stable condition. Lee MUÑOZ/SSB /8:32 AM /8:41 AM
[2017-09-18 12:00] VITALS: BP 135/58; PULSE 68; RESP 18; TEMP 96.6; O2SAT 96
--- NOTE | 2017-09-18 14:14 | HHI.PR ---
Subjective Remarks Follow-up left peritonsillar abscess. Patient is feeling better tolerated regular diet. Discussed with RN Objective Vitals Vital Signs Date Time Temp Pulse Resp B/P (MAP) Pulse Ox O2 Delivery O2 Flow Rate FiO2 09/18/17 12:00 96.6 68 18 135/58 (83) 96 09/18/17 07:56 96.0 58 18 123/59 (80) 96 09/18/17 07:03 18 09/18/17 04:38 18 09/18/17 00:15 96.5 67 18 137/65 (89) 97 09/17/17 23:02 16 09/17/17 20:45 96.3 71 18 122/62 (82) 99 09/17/17 16:00 97.0 73 16 140/59 (86) 97 I/O 09/17/17 09/17/17 09/17/17 09/18/17 09/18/17 09/18/17 07:00 15:00 23:00 07:00 15:00 23:00 Intake Total 200 ml 1020 ml 480 ml 480 ml Output Total 5 ml Balance 200 ml 1015 ml 480 ml 480 ml Intake Oral 0 ml 720 ml 480 ml 480 ml IV Total 200 ml Other 300 ml Output Estimated Blood Loss 5 ml # Voids 3 5 2 2 # Bowel Movements 1 1 0 0 Result Diagram: 09/18/1751009/18/1711 Objective Remarks GENERAL: This is a well-nourished, well-developed patient, appears uncomfortable. SKIN: No rashes, ecchymoses or lesions. Cool and dry. ENT: Nose without bleeding, purulent drainage or septal hematoma. Left peritonsillar fullness improved. Anterior cervical lymphadenopathy. Oral thrush noted NECK: Trachea midline. No JVD or lymphadenopathy. Supple, nontender, no meningeal signs. CARDIOVASCULAR: Regular rate and rhythm without murmurs, gallops, or rubs. RESPIRATORY: Clear to auscultation. Breath sounds equal bilaterally. No wheezes , rales, or rhonchi. GASTROINTESTINAL: Abdomen soft, non-tender, nondistended. No guarding. MUSCULOSKELETAL: Extremities without clubbing, cyanosis, or edema. No joint tenderness, effusion, or edema noted. No calf tenderness. Negative Homans sign bilaterally. NEUROLOGICAL: Awake and alert. Cranial nerves II through XII intact. Motor and sensory grossly within normal limits. Five out of 5 muscle strength in all muscle groups. Normal speech. Procedures I and D of left peritonsillar abscess A/P Problem List: (1) Tonsillar abscess ICD Code: J36 - Peritonsillar abscess Status: Acute Assessment and Plan Left peritonsillar abscess with failed outpatient therapy. Improving status post I ND. ENT recommends continuing IV antibiotic for 24-48 hours and await culture results. Continue IV Unasyn and pain management. Counseled regarding narcotics. Add liquid ibuprofen Oral thrush. Stable continue Nystatin liquid for 2 weeks Hyperglycemia. A1c within normal limits Sick euthyroid. Right upper lung density. Follow-up CT in 3 months Tobacco abuse. Cessation counseling provided. Low risk for DVT Fritz Nowak MD Sep 18, 2017 14:14
[2017-09-18] MEDS ORDERED: IBUPROFEN SUSP 100 MG/5 ML 120 ML BOTTLE PO PRN (14:30)
[2017-09-18 16:00] VITALS: BP 140/65; PULSE 67; RESP 18; TEMP 96.9; O2SAT 99
[2017-09-18] MEDS: SODIUM CHLOR 0.9% 1000 ML INJ 1,000 ML IV SCH (19:06)
[2017-09-18] MEDS: SODIUM CHLORIDE 0.9% FLUSH 10 ML FLUSH IV FLUSH SCH ×2 (19:41→20:16)
[2017-09-18 20:25] VITALS: BP 129/69; PULSE 71; RESP 18; TEMP 97.1; O2SAT 96
[2017-09-18] MEDS: IBUPROFEN SUSP 100 MG/5 ML UDC PO PRN (23:57)
[2017-09-19 00:31] VITALS: BP 128/69; PULSE 69; RESP 18; TEMP 97.3; O2SAT 96
[2017-09-19] MEDS: ACETAMINOPHEN 325MG/HYDROcodone 7.5MG/15ML UDC PO PRN ×2 (02:01→10:28)
[2017-09-19] MEDS: AMPICILLIN/SULBAC 3 GM/NS 100 ML IV SCH ×4 (05:21→10:34)
[2017-09-19] MEDS: SODIUM CHLOR 0.9% 1000 ML INJ 1,000 ML IV SCH (05:48)
[2017-09-19] MEDS: IBUPROFEN SUSP 100 MG/5 ML UDC PO PRN (05:50)
[2017-09-19 08:00] VITALS: BP 122/60; PULSE 60; RESP 18; TEMP 97; O2SAT 97
[2017-09-19] MEDS: NYSTATIN SUSP 500,000 U/5 ML CUP SWISH-SPIT SCH ×2 (10:28→13:01)
[2017-09-19] MEDS: SODIUM CHLORIDE 0.9% FLUSH 10 ML FLUSH IV FLUSH SCH (10:31)
[2017-09-19] MEDS: FAMOTIDINE 20 MG/2 ML VIAL IV PUSH SCH (10:31)
[2017-09-19 12:00] VITALS: BP 123/72; PULSE 65; RESP 18; TEMP 97.4; O2SAT 97
[2017-09-19] MEDS ORDERED: AUGM875T3 PO (14:24)
[2017-09-19] MEDS ORDERED: NYST1000 SWISH-SPIT (14:24)
--- NOTE | 2017-09-19 14:24 | HHI.DCPOC ---
Discharge Care Plan Diagnosis: (1) Tonsillar abscess Your Health Problems Are: Difficulty with ADL Exercise Tolerance Goals to Promote Your Health * To prevent worsening of your condition and complications * To maintain your health at the optimal level Directions to Meet Your Goals Take your medications as prescribed Follow your dietary instruction Follow activity as directed Keep your appointments as scheduled Take your immunizations and boosters as scheduled If your symptoms worsen call your PCP, if no PCP go to Urgent Care Center or Emergency Room Smoking is Dangerous to Your Health. Avoid second hand smoke Call the 24-hour hour crisis hotline for domestic abuse at Fritz Nowak MD Sep 19, 2017 14:24
--- NOTE | 2017-09-19 14:24 | HHI.DCPOC ---
Discharge Care Plan Diagnosis: (1) Tonsillar abscess Your Health Problems Are: Difficulty with ADL Exercise Tolerance Goals to Promote Your Health * To prevent worsening of your condition and complications * To maintain your health at the optimal level Directions to Meet Your Goals Take your medications as prescribed Follow your dietary instruction Follow activity as directed Keep your appointments as scheduled Take your immunizations and boosters as scheduled If your symptoms worsen call your PCP, if no PCP go to Urgent Care Center or Emergency Room Smoking is Dangerous to Your Health. Avoid second hand smoke Call the 24-hour hour crisis hotline for domestic abuse at Fritz Nowak MD Sep 19, 2017 14:24
--- NOTE | 2017-09-19 14:24 | HHI.DCPOC ---
Discharge Care Plan Diagnosis: (1) Tonsillar abscess Your Health Problems Are: Difficulty with ADL Exercise Tolerance Goals to Promote Your Health * To prevent worsening of your condition and complications * To maintain your health at the optimal level Directions to Meet Your Goals Take your medications as prescribed Follow your dietary instruction Follow activity as directed Keep your appointments as scheduled Take your immunizations and boosters as scheduled If your symptoms worsen call your PCP, if no PCP go to Urgent Care Center or Emergency Room Smoking is Dangerous to Your Health. Avoid second hand smoke Call the 24-hour hour crisis hotline for domestic abuse at Fritz Nowak MD Sep 19, 2017 14:24
--- NOTE | 2017-09-19 14:27 | HHI.DS ---
Discharge Summary Admission Date Sep 15, 2017 at 22:13 Discharge Date: Sep 19, 2017 Admitting Diagnosis Left OPHTHALMIC MEDICAL TECHNICIAN (1) Tonsillar abscess ICD Code: J36 - Peritonsillar abscess Diagnosis: Principal Status: Acute Procedures I and D of left peritonsillar abscess Brief History - From Admission 27-year-old male with recent admission 09/10-09/13 for tonsillitis, during which ENT was consulted, and he was treated with broad-spectrum antibiotics, steroids. He was discharged home with clindamycin and prednisone, however has had worsening sore throat, difficulty swallowing. He does not feel as if she has difficulty breathing at this time. He reports fever this morning of 101 Fahrenheit. Denies any chest pain or shortness of breath. Denies any nausea or vomiting. Denies any lightheadedness or dizziness. CBC/BMP: 09/18/17 0511 09/18/17 0511 Significant Findings Laboratory Tests Test 09/18/17 05:11 White Blood Count 27.0 TH/MM3 (4.0-11.0) Mean Platelet Volume 11.3 FL (7.0-11.0) Neutrophils (%) (Auto) 89.4 % (16.0-70.0) Lymphocytes (%) (Auto) 6.3 % (9.0-44.0) Neutrophils # (Auto) 24.2 TH/MM3 (1.8-7.7) Monocytes # (Auto) 1.1 TH/MM3 (0-0.9) Random Glucose 126 MG/DL (74-106) Calcium Level 8.3 MG/DL (8.5-10.1) Imaging Last Impressions Neck CT 09/16/17 0000 Signed Impressions: Service Date/Time: Saturday, September 16, 2017 10:08 - CONCLUSION: Large fluid collection with its epicenter in the region of the left tonsillar pillar and measuring 3.2 x 4.1 x 5.0 cm consistent with probable left tonsillar abscess. Clinical correlation is recommended. Nakul Tesfaye MD PE at Discharge GENERAL: This is a well-nourished, well-developed patient, appears uncomfortable. SKIN: No rashes, ecchymoses or lesions. Cool and dry. ENT: Nose without bleeding, purulent drainage or septal hematoma. Left peritonsillar fullness improved. Anterior cervical lymphadenopathy. Oral thrush noted NECK: Trachea midline. No JVD or lymphadenopathy. Supple, nontender, no meningeal signs. CARDIOVASCULAR: Regular rate and rhythm without murmurs, gallops, or rubs. RESPIRATORY: Clear to auscultation. Breath sounds equal bilaterally. No wheezes , rales, or rhonchi. GASTROINTESTINAL: Abdomen soft, non-tender, nondistended. No guarding. MUSCULOSKELETAL: Extremities without clubbing, cyanosis, or edema. No joint tenderness, effusion, or edema noted. No calf tenderness. Negative Homans sign bilaterally. NEUROLOGICAL: Awake and alert. Cranial nerves II through XII intact. Motor and sensory grossly within normal limits. Five out of 5 muscle strength in all muscle groups. Normal speech. Hospital Course Left peritonsillar abscess with failed outpatient therapy. Improving status post I ND. Received 4 days of IV Unasyn cultures negative to date. Continue pain management. Counseled regarding narcotics. Oral thrush. Stable continue Nystatin liquid for 2 weeks Hyperglycemia. A1c within normal limits Sick euthyroid. Right upper lung density. Follow-up CT in 3 months Tobacco abuse. Cessation counseling provided. Low risk for DVT Stable for discharge Pt Condition on Discharge: Stable Discharge Disposition: Discharge Home Discharge Time: > 30 minutes Discharge Instructions DIET: Follow Instructions for: As Tolerated, No Restrictions Activities you can perform: Regular-No Restrictions Activities to Avoid: Driving Follow up Referrals: Ear Nose Throat - 1 Week PCP Follow-up - 1 Week New Medications: Amoxicillin-Clavulanate (Augmentin) 875-125 Mg Tab 1 TAB PO BID for Infection, #14 TAB 0 Refills Nystatin Liq (Nystatin Liq) 100,000 unit/ml Susp 5 ML SWISH-SPIT QID for Infection, #240 ML Discontinued Medications: Famotidine (Famotidine) 20 Mg Tab 20 MG PO BID, #60 TAB 0 Refills Prednisone (Prednisone) 20 Mg Tab 20 MG PO DAILY, TAB 0 Refills Fritz Nowak MD Sep 19, 2017 14:27
== END 2017-09-19 14:55 | disposition home or self-care (01) | DRG 133 ==
LOC: NEPE 21:03 → NEDA 22:02 → OBSVTOIN 22:13 → N06A 09-16 00:04
PROVIDERS: ADMIT Internal Medicine; ATTEND Internal Medicine
PROC: 0C9PXZZ Drainage of Tonsils, External Approach (ICD-10-PCS; principal; 2017-09-17 10:56)
DX: J36 Peritonsillar abscess (principal); B37.0 Candidal stomatitis; E07.81 Sick-euthyroid syndrome; F17.210 Nicotine dependence, cigarettes, uncomplicated; R73.9 Hyperglycemia, unspecified; J98.4 Other disorders of lung; Z88.6 Allergy status to analgesic agent
CPT/HCPCS: 70491; 80048; 80053; 83735; 85025; 87015; 87070; 87076; 87102; 87116; 87185; 87205; 87206; J0295; J1100; J1170; J2175; J2270; J2920; J7030; Q9967